=== PATIENT | male | born 1960 | race Caucasian/White ===

== ENCOUNTER 2024-05-30 10:56 | Inpatient (IN) ==
--- NOTE | 2024-05-30 11:54 | Emergency Department Note ---
Impression & Plan Myelopathy concurrent with and due to spinal stenosis of cervical region, Encounter for pre-operative examination ED Provider Note CHIEF COMPLAINT: "I am here as a direct admit for surgery tomorrow" HISTORY OF PRESENT ILLNESS: This 63-year-old male patient presents to the emergency department via private vehicle at the recommendation of Dr. Mckee. The patient states he was referred to the emergency department for admission for scheduled cervical spine surgery tomorrow morning. He states that he was unable to get in with his primary care provider for medical clearance prior to the surgery date and was referred to the emergency department to be admitted and medically cleared by the hospitalist staff prior to his surgery. He states "the surgery is emergent". He states he has been having difficulty ambulating and frequent falls despite the use of a walker. He notes he is having pain in his neck and all extremities with decreased range of motion of the bilateral upper extremities. Symptoms have been ongoing for about 6 weeks. No new injury or symptoms today. Pt. uncertain whether he is being admitted by Dr. Mckee or by hospitalist service. Pt. states he had Pre-admission testing completed here at the hospital about 1-2 weeks ago. History provided by: Patient and REVIEW OF SYSTEMS: A 10 system review of systems was performed with positives and pertinent negatives listed in the history of present illness. All other systems were reviewed and are negative. ALLERGIES: NKDA PHYSICAL EXAM: VITALS: Vitals are noted on the nurse's note and reviewed by myself. GENERAL: This is a 63 year old male, in no acute distress, nondiaphoretic, well- developed well-nourished. SKIN: The skin was without rashes, erythema, edema, or bruising. There is no tenting of the skin. Capillary refill less than 2 seconds. HEAD: Normocephalic atraumatic. EYES: Conjunctivae without injection, sclerae without icterus. MOUTH: Mucous membranes moist. NECK: Supple without nuchal rigidity. No lymphadenopathy. Cervical spine is nontender. No JVD. HEART: Regular rate and rhythm without murmurs gallops or rubs. LUNGS: Clear to auscultation bilaterally without wheezes, rales or rhonchi. No retractions or accessory muscle use. ABDOMEN: Positive bowel sounds x 4. Soft, nontender, without masses or organomegaly. No guarding or rebound tenderness. MUSCULOSKELETAL: No muscle atrophy, erythema, or edema noted. Full range of motion without joint tenderness in all extremities. NEURO: Patient was alert and oriented to person place and time. No focal neurological deficits. EMERGENCY DEPARTMENT COURSE: The patient was seen and evaluated as above. I did consult with Dr. Mckee. He is familiar with this patient. He notes that he will perform the admission. IV access was obtained and basic labs were drawn. No concerning leukocytosis or anemia. No thrombocytopenia. Renal, hepatic function and electrolytes without significant abnormality. Blood glucose is elevated at 308. Urinalysis positive for 3+ glucose, but no clear evidence of infection. I discussed the case with the pharmacy manager. Please see inpatient team dictation regarding ongoing management care of this patient. Case was discussed with the attending physician. This visit is during a period of high volume and high acuity in the emergency department. I attest that I have personally reviewed the patient medication list. I attest that I have reviewed the patient's blood pressure and it was found to be elevated. Further management by inpatient team. GCS: 15 In the evaluation and treatment of this patient the following differential diagnoses were entertained: cervical radiculopathy, pre-operative evaluation, hypertension, hyperglycemia, malignancy, among others The chart was completed utilizing [employer] Speech voice recognition software. Grammatical errors, random word insertions, pronoun errors, and incomplete sentences are an occasional consequence of this system due to software limitations, ambient noise, and hardware issues. Any formal questions or concerns about the content, text, or information contained within the body of this dictation should be directly addressed to the provider for clarification. Past Med/Surg History Problem List (Updated 05/30/24 @ 16:17 by Lou Phan PA-C) Myelopathy concurrent with and due to spinal stenosis of cervical region (Acute) Encounter for pre-operative examination (Acute) Medical History History of kidney stones passed on own Type 2 diabetes mellitus IDDM History of prostate cancer 2011 - XRT only - no chemo/surgery Hx of gastric ulcer "About a year ago. It was three bleeding ulcers" resolved and no issues at this time Hypertension Surgical History Hx of colonoscopy Hx of fusion of cervical spine 2017 - hardware in place - Full ROM as per patient S/P insertion of spinal cord stimulator (2022) Social History Smoking Status: Never smoker Second Hand Exposure: No; Do You Dip or Chew Tobacco: No; Hx Alcohol Use: No Hx Substance Use: No Preferred Language: Lebanese Communication Ability: Effective Vice President Sales And Marketing Required: No Beliefs That Will Affect Care: None Current Living Situation: Spouse Feels Safe at Home: Yes Assistive Devices: Walker Allergies Allergies Allergy/AdvReac Type Severity Reaction Status Date / Time No Known Allergies Allergy Verified 05/30/24 12:18 Home Meds Home Medications Medication Instructions Recorded Confirmed atorvastatin 20 mg tablet (Lipitor) 20 mg PO QPM 05/26/24 05/30/24 duloxetine 20 mg capsule,delayed 20 mg PO BID 05/26/24 05/30/24 release (Cymbalta) insulin glargine 100 unit/mL (3 60 unit subcut QPM 05/26/24 05/30/24 mL) subcutaneous pen (Lantus Solostar U-100 Insulin) insulin lispro 100 unit/mL 1 sliding scale dose subcut UD PRN 05/26/24 05/30/24 subcutaneous pen BS levels irbesartan 300 mg tablet (Avapro) 300 mg PO QAM 05/26/24 05/30/24 pantoprazole 20 mg tablet,delayed 20 mg PO QAM 05/26/24 05/30/24 release (Protonix) pregabalin 300 mg capsule 300 mg PO BID 05/26/24 05/30/24 tirzepatide 15 mg/0.5 mL 15 mg subcut WK 05/26/24 05/30/24 subcutaneous pen injector (Mounjaro) cholecalciferol (vitamin D3) 125 5,000 unit PO QAM 05/30/24 05/30/24 mcg (5,000 unit) tablet cyanocobalamin (vitamin B-12) 1,000 mcg PO QAM 05/30/24 05/30/24 1,000 mcg tablet multivitamin 1 tab PO QAM 05/30/24 05/30/24 Results & Data (ED) Vital Signs Vital Signs - 24 hr 05/30/24 10:59 Temperature 35.7 C L Temperature Source Temporal Artery Scan Pulse Rate 72 Respiratory Rate 20 Respiratory Effort / Characteristics Non-Labored Spontaneous Respiratory Depth Normal Blood Pressure 112/72 Blood Pressure Mean 85 Pulse Oximetry 97 Oxygen Delivery Method Room Air Sepsis Recent Fever Within 48 Hours No Sepsis New/Unexplained Change in Mental Status No Sepsis Action Taken by Nursing No Action Required Laboratory Data 05/30/24 15:47 05/30/24 12:13 Discharge Plan Visit Data Chief Complaint: Neck Injury/Pain Stated Complaint: NEEDS ADMITED FOR EMERGENCY NECK SURG TOMORROW ED Provider: Mana Wasserman ED Midlevel Provider: Lou Phan Discharge Problem: Myelopathy concurrent with and due to spinal stenosis of cervical region, Encounter for pre-operative examination Patient Disposition: Admitted As Inpatient Discharge Instructions Interventions: ED Discharge Assessment Last Done: 05/30/24 15:28
[2024-05-30 12:37] LABS: Basophils # (auto) 0.03 K/uL (0.00-0.20); Basophils % (auto) 0.3 %; Eosinophils # (auto) 0.22 K/uL (0.00-0.50); Eosinophils % (auto) 2.5 %; Hematocrit (blood only) 43.3 % (42.0-52.0); Hemoglobin 15.5 g/dl (14.0-18.0); Immature Granulocytes # (auto) 0.05 K/uL (0.01-0.20); Immature Granulocytes % (auto) 0.6 %; Lymphocytes # (auto) 2.05 K/uL (1.20-3.40); Lymphocytes % (auto) 23.3 %; Mean Corpuscular Hemoglobin 32.9 pg (25.0-34.0); Mean Corpuscular Hgb Conc 35.8 g/dL (32.0-36.0); Mean Corpuscular Volume 91.9 fL (80.0-100.0); Mean Platelet Volume 10.9 fL (9.4-12.4); Monocytes # (auto) 0.71 K/uL (0.11-0.59); Monocytes % (auto) 8.1 %; Neutrophils # (auto) 5.75 K/uL (1.40-6.50); Neutrophils % (auto) 65.2 %; Platelet Count 289 K/uL (130-400); RDW Coefficient of Variation 12.4 % (11.5-14.5); RDW Standard Deviation 42.1 fL (36.4-46.3); Red Blood Count 4.71 M/uL (4.70-6.10); White Blood Count 8.81 K/ul (4.8-10.8)
[2024-05-30 13:01] LABS: Albumin Globulin Ratio 1.4 (0.9-2); Albumin Level 4.2 gm/dl (3.4-5.0); BUN Creatinine Ratio 23.8 (10-20); Bilirubin,Total 0.4 mg/dl (0.2-1.0); Calcium 9.5 mg/dl (8.6-10.3); Creatinine Clr Calc Pharmacy 87.1 ml/min; Globulin 2.9 gm/dl (2.5-4.0); Potassium 4.4 mmol/L (3.5-5.1); Total Protein 7.1 gm/dl (6.0-8.3)
[2024-05-30 13:22] LABS: Appearance Urine Clear (Clear); Bilirubin Urine Negative (Negative); Blood Urine Negative (Negative); Color Urine Yellow; Glucose Urine UA 3+ (Negative); Ketones Urine Negative (Negative); Leukocyte Esterase Urine Negative (Negative); Nitrite Urine Negative (Negative); Protein Urine Negative (Negative); Specific Gravity Urine 1.027 (1.000-1.030); Urobilinogen Urine Negative (Negative); pH Urine 5.5 (4.5-7.5)
--- NOTE | 2024-05-30 14:39 | History & Physical Report ---
Date of Service May 30, 2024 Assessment & Plan (1) Myelopathy concurrent with and due to spinal stenosis of cervical region: Plan: Assessment cervical spinal stenosis with herniated supposes creating myelopathy. Plan at this time admit the patient for medical evaluation and plan for anterior cervical corpectomy of C6 in the a.m. Will make him n.p.o. after midnight. Risk benefits pros cons alternatives all in detail. Understands the primary goal of the procedure is to halt progressive neurologic deficits and then time hopefully he will gain improvement. History of Present Illness Chief Complaint: Bilateral arm and leg weakness Primary Care Provider: Estelle Okeefe DO This is a 63-year-old male who presents with marked decline over the past several months with his ability to ambulate. He notes marked decline in strength in his upper and lower extremities. He is marked difficulty with fine motor skills involving his hands. Imaging of the cervical spine demonstrates massive disc herniation posterior to the body of C6 with severe cord compression and myelomalacia. He is here for medical evaluation and urgent surgical intervention. Allergies Allergy/AdvReac Type Severity Reaction Status Date / Time No Known Allergies Allergy Verified 05/30/24 12:18 Home Medications Medication Instructions Recorded Confirmed Type atorvastatin 20 mg tablet (Lipitor) 20 mg PO QPM 05/26/24 05/30/24 History duloxetine 20 mg capsule,delayed 20 mg PO BID 05/26/24 05/30/24 History release (Cymbalta) insulin glargine 100 unit/mL (3 60 unit subcut QPM 05/26/24 05/30/24 History mL) subcutaneous pen (Lantus Solostar U-100 Insulin) insulin lispro 100 unit/mL 1 sliding scale dose subcut UD PRN 05/26/24 05/30/24 History subcutaneous pen BS levels irbesartan 300 mg tablet (Avapro) 300 mg PO QAM 05/26/24 05/30/24 History pantoprazole 20 mg tablet,delayed 20 mg PO QAM 05/26/24 05/30/24 History release (Protonix) pregabalin 300 mg capsule 300 mg PO BID 05/26/24 05/30/24 History tirzepatide 15 mg/0.5 mL 15 mg subcut WK 05/26/24 05/30/24 History subcutaneous pen injector (Mounhectorro) cholecalciferol (vitamin D3) 125 5,000 unit PO QAM 05/30/24 05/30/24 History mcg (5,000 unit) tablet cyanocobalamin (vitamin B-12) 1,000 mcg PO QAM 05/30/24 05/30/24 History 1,000 mcg tablet multivitamin 1 tab PO QAM 05/30/24 05/30/24 History Past Med/Surg History Problem List (Updated 05/30/24 @ 14:38 by Km Mckee DO) Myelopathy concurrent with and due to spinal stenosis of cervical region Encounter for pre-operative examination Medical History History of kidney stones passed on own History of prostate cancer 2011 - XRT only - no chemo/surgery Hx of gastric ulcer "About a year ago. It was three bleeding ulcers" resolved and no issues at this time Hypertension Type 2 diabetes mellitus IDDM Surgical History Hx of colonoscopy Hx of fusion of cervical spine 2016 - hardware in place - Full ROM as per patient S/P insertion of spinal cord stimulator (2022) Social History Smoking Status: Never smoker Second Hand Exposure: No; Do You Dip or Chew Tobacco: No; Hx Alcohol Use: No Hx Substance Use: No Preferred Language: Senegalese Communication Ability: Effective Chief Client Officer Required: No Beliefs That Will Affect Care: None Current Living Situation: Spouse Feels Safe at Home: Yes Assistive Devices: Walker Physical Exam Physical Exam: On exam the patient does demonstrate 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 He is marked weakness to finger intrinsics finger extensors flexors triceps bilaterally at a 3+/5. Sensory is diminished to the upper and lower extremities. Deep tendon reflexes are brisk globally. His Michael sign bilaterally. He cannot ambulate without the use of a walker for stability. He has a positive Romberg sign. Results & Data Results & Data Vital Signs (Past 12 Hours) Vital Signs Temp Pulse Pulse Resp BP BP Pulse Ox 05/30/24 12:16 69 18 117/76 96 05/30/24 10:59 35.7 C L 72 20 112/72 97 O2 Del Method 05/30/24 12:16 Room Air 05/30/24 10:59 Room Air Code Status & VTE Plan VTE Prophylaxis Plan VTE Prophylaxis will be ordered: Yes
[2024-05-30] MEDS ORDERED: HYDROmorphone INJ 0.5 MG/0.5 ML SYR IV PRN (15:28)
[2024-05-30] MEDS ORDERED: ONDANSETRON 4 MG OD TAB PO PRN (15:28)
[2024-05-30] MEDS ORDERED: LORazepam 0.5 MG TAB PO PRN (15:28)
[2024-05-30] MEDS ORDERED: LORazepam 2 MG/1 ML VIAL IV PRN (15:28)
[2024-05-30] MEDS ORDERED: ONDANSETRON INJ 2 MG/ML 2 ML VIAL IV PRN (15:28)
[2024-05-30] MEDS ORDERED: ACETAMINOPHEN 500 MG TAB PO PRN (15:28)
[2024-05-30] MEDS ORDERED: PROMETHAZINE 12.5 MG/50.5 ML BAG IV PRN (15:28)
[2024-05-30] MEDS ORDERED: METOCLOPRAMIDE HCL INJ 5 MG/ML 2 ML VIAL IV PRN (15:28)
[2024-05-30] MEDS ORDERED: PHARMACY GLYCEMIC MGMT CONSULT PRN (15:28)
[2024-05-30] MEDS ORDERED: NON-FORMULARY MEDICATION (Insulin Lispro 100 unit/mL Insulin Pen) SQ SCH (15:28)
[2024-05-30] MEDS ORDERED: NALOXONE HCL 0.4 MG/1 ML VIAL/CARP IV PRN (15:28)
[2024-05-30] MEDS ORDERED: ACETAMINOPHEN 1,000 MG/100 ML VIAL IV PRN (15:28)
--- NOTE | 2024-05-30 15:40 | Emergency Department Note ---
ED Visit Note I was consulted by the Advanced Practice Provider. I personally approved the management plan and take responsibility for the patient management. This includes the aspects of: -History/Physical -MDM -I independently interpreted the following studies:Studies and results .
[2024-05-30] MEDS ORDERED: GLUCOSE 10 TAB/TUBE PO PRN (16:00)
[2024-05-30] MEDS ORDERED: DEXTROSE 50% 50 ML SYRINGE IV PRN (16:00)
[2024-05-30] MEDS ORDERED: CARBOHYDRATES FOR HYPOGLYCEMIA PO PRN (16:00)
[2024-05-30] MEDS ORDERED: GLUCOSE 40% GEL 15 GM TUBE PO PRN (16:00)
[2024-05-30] MEDS ORDERED: GLUCAGON FOR INJ 1 MG VIAL SQ PRN (16:00)
[2024-05-30 16:03] LABS: Basophils # (auto) 0.04 K/uL (0.00-0.20); Basophils % (auto) 0.5 %; Eosinophils # (auto) 0.22 K/uL (0.00-0.50); Eosinophils % (auto) 2.9 %; Hematocrit (blood only) 43.5 % (42.0-52.0); Immature Granulocytes # (auto) 0.04 K/uL (0.01-0.20); Immature Granulocytes % (auto) 0.5 %; Lymphocytes # (auto) 1.87 K/uL (1.20-3.40); Lymphocytes % (auto) 24.6 %; Mean Corpuscular Hemoglobin 32.1 pg (25.0-34.0); Mean Corpuscular Hgb Conc 34.5 g/dL (32.0-36.0); Mean Corpuscular Volume 92.9 fL (80.0-100.0); Mean Platelet Volume 10.8 fL (9.4-12.4); Monocytes # (auto) 0.68 K/uL (0.11-0.59); Neutrophils # (auto) 4.74 K/uL (1.40-6.50); Neutrophils % (auto) 62.5 %; Platelet Count 290 K/uL (130-400); RDW Coefficient of Variation 12.6 % (11.5-14.5); RDW Standard Deviation 43.5 fL (36.4-46.3); Red Blood Count 4.68 M/uL (4.70-6.10); White Blood Count 7.59 K/ul (4.8-10.8)
[2024-05-30 16:30] LABS: Albumin Globulin Ratio 1.2 (0.9-2); Albumin Level 3.8 gm/dl (3.4-5.0); Bilirubin,Total 0.4 mg/dl (0.2-1.0); Calcium 9.2 mg/dl (8.6-10.3); Globulin 3.1 gm/dl (2.5-4.0); Potassium 4.7 mmol/L (3.5-5.1); Total Protein 6.9 gm/dl (6.0-8.3)
--- NOTE | 2024-05-30 17:03 | XRay Report ---
EXAM: Radiographs of the Chest 2 Views INDICATION: Undergoing preoperative evaluation TECHNIQUE: Frontal and lateral views of the chest. COMPARISON: 05/25/2024 FINDINGS: Lungs and pleural spaces: No consolidation or pulmonary edema. No pleural effusion or pneumothorax. Heart: Normal shape and configuration. Mediastinum: Normal contour. Bones/joints: Degenerative changes noted throughout the spine. No acute osseous abnormality seen. Tubes, lines and devices: Stable dorsal column electrode. IMPRESSION: No acute cardiopulmonary disease. ACT 112: Negative or not required by law. Electronically signed by Tere Parkinson 05-30-2024 5:03 PM
[2024-05-30] MEDS: INSULIN ASPART PER UNIT CHARGE SC SCH ×2 (17:21→23:35)
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
[2024-05-30] MEDS ORDERED: POLYETHYLENE (MIRALAX) 17 GM PACK PO PRN (19:30)
[2024-05-30] MEDS: LANTUS PER UNIT CHARGE SC SCH (20:53)
[2024-05-30] MEDS: PREGABALIN 150 MG CAP PO SCH (20:58)
[2024-05-30] MEDS: ATORVASTATIN 20 MG TAB PO SCH (20:59)
[2024-05-30] MEDS: DULoxetine HCL 20 MG CAP PO SCH (20:59)
[2024-05-30] MEDS ORDERED: NON-FORMULARY MEDICATION (Insulin Glargine [Lantus Solostar U-100 Insulin] 100 unit/mL (3 SQ SCH (21:00)
[2024-05-31 07:13] LABS: Hematocrit (blood only) 41.8 % (42.0-52.0); Hemoglobin 14.4 g/dl (14.0-18.0); Mean Corpuscular Hemoglobin 31.6 pg (25.0-34.0); Mean Corpuscular Hgb Conc 34.4 g/dL (32.0-36.0); Mean Corpuscular Volume 91.9 fL (80.0-100.0); Mean Platelet Volume 10.7 fL (9.4-12.4); Platelet Count 299 K/uL (130-400); RDW Coefficient of Variation 12.9 % (11.5-14.5); RDW Standard Deviation 43.4 fL (36.4-46.3); Red Blood Count 4.55 M/uL (4.70-6.10); White Blood Count 9.39 K/ul (4.8-10.8)
[2024-05-31 07:19] LABS: BUN Creatinine Ratio 23.3 (10-20); Calcium 9.3 mg/dl (8.6-10.3); Creatinine Clr Calc Pharmacy 85.5 ml/min; Magnesium 1.6 mg/dl (1.7-2.4); Potassium 4.2 mmol/L (3.5-5.1)
--- NOTE | 2024-05-31 07:47 | History & Physical Bridge Note ---
Date of Service May 31, 2024 History & Physical Bridge Note I have examined the patient, reviewed the History & Physical and in the interval since the performance of the History & Physical I have noted the following changes of clinical significance: no changes noted C6 corpectomy
[2024-05-31] MEDS: ceFAZolin 2000MG 2,000 MG/15 ML SYR IV SCH ×2 (08:20→17:05)
[2024-05-31 08:29] LABS: Estimated Average Glucose 229 mg/dl; Hemoglobin A1C 9.6 % (4.5-5.6)
[2024-05-31] MEDS: ceFAZolin 330 MG/ML 1 GM VIAL ONE (09:40)
--- NOTE | 2024-05-31 09:47 | Operative Report ---
Post Operative Report Pre & Post Diagnosis Operation Date: 05/31/24 07:45 Pre-Op Diagnosis: Myelopathy concurrent with and due to spinal stenosis of cervical region Post-Op Diagnosis: Myelopathy concurrent with and due to spinal stenosis of cervical region I identified the patient and participated in the time-out.: Yes Procedure Operation Date: 05/31/24 07:45 Actual Procedures #1 anterior cervical partial discectomy of C6. #2 anterior cervical arthrodesis C6-C7. #3 placement 19 mm Spira cage. #4 placement locally harvested morselized autograft combined with os designed in the interbody cage. #5 application of Z plate and screws from C5-C7. Surgeon Km Mckee, DO Student Accounts Coordinator Darwin Patel Estimated Blood Loss 10 Findings Consistent with Post-Op Diagnosis Specimens None Indications This is a 63-year-old male who presents with a massive disc herniation posterior to the body of C6 creating significant cervical spinal stenosis and myelopathy with evidence of myelomalacia on MRI scan. He is here for urgent decompression and fusion. Description of Procedure Patient was met with identified informed consent obtained. Patient was then taken to the operative suite underwent sedation supplies in the supine position on the Honorio table head Jerry heading up machine operator. All bony promises well-padded eyes inspected to ensure no external pressure placed upon the. This point the anterior cervical spine was prepped and draped no sterile fashion. With the assistance of fluoroscopy notified the C6 vertebral body. A longitudinal incision was placed along the right anterior aspect of the cervical spine overlying the C6 vertebral body. Blunt dissection with the assistance of bipolar electrocautery is then performed down to and exposing the anterior cervical spine from C5-C6. Several rosen retractors placed. Informed complete discectomy of C6 out to the uncovertebral joints bilaterally. Then performed a partial corpectomy of C6 roughly 2/3 of the vertebral body. I was able to leave the stand-alone intradiscal construct at C5-C6 in place. Appear to be solidly fused. Removed all posterior annular fibers and longitudinal limit for complete decompression of the canal. Massive fragment of disc material identified and removed. The endplates were then burred to subcortical bleeding bone and a 19 mm Spira cage filled with local harvested morselized autograft and os design tapped in position. Distracting apparatus was removed. Z plate was applied from C5-C7 with the assistance of fluoroscopy. The incision was then livia irrigated explored to ensure no damage to surrounding structures or remaining bleeding. 10 round MIGUELANGEL drain inserted. Incision then closed with 2 Vicryl fascia and 4 Monocryl for final skin closure. Steri-Strips sterile dressing placed. Patient waken taken the PACU stable condition. Please note spinal cord monitoring was utilized out the procedure no changes noted. Darwin Patel was present out the entire surgery and while the patient positioning complex portion of the surgery and final skin closure. Im ordering 10 grams of Triple Junior Collagen Powder ([employer] [id number]) to treat an incision wound that was caused by a spine procedure. The incision is approximately 2 cm(W) x 4 cm(L) into the joint (D) in size and is a full thickness wound. Triple Junior collagen comes in 1 gram packets so 10 packets were ordered. Given the size of the wound, with light to moderate exudate I chose to order a 10 day supply. The patient will be provided instructions for proper application of the collagen wound kit. The patient will be asked to apply the collagen powder daily and then cover it with sterile dressings dispensed. Collagen was selected as I expect the collagen to attract monocytes and fibroblasts, act as a sacrificial substrate for MMPs, and ultimately proved a matrix for tissue and vessel growth. The collagen will act as a primary dressing in this scenario. It is medically necessary for proper healing of these wounds to improve bioavailability and contact with each wound surface, this is also to help prevent infection of wounds and promote healing ultimately leading to a better healing outcome and limit the risk of infection. I attest to the content of the Intraoperative Record and any orders documented therein. Any exceptions are noted below.
[2024-05-31] MEDS: FLOSEAL HEMOSTATIC MATRIX 10ML TOP ONE (09:52)
--- NOTE | 2024-05-31 11:38 | Hospitalist Progress Note ---
Date of Service May 31, 2024 Assessment & Plan (1) Myelopathy concurrent with and due to spinal stenosis of cervical region: Plan Assessment and plan: Cervical spinal stenosis with myelopathy S/p C6 corpectomy 05/31 -Pain control, DVT prophylaxis as per primary team I-S and bowel regimen Recurrent falls Peripheral neuropathy Continue Lyrica, PT/OT/fall precautions DM Type II: A1c 9.6, glycemic pharmacist following Blood sugars improved today, continue insulin Hx HTN/HLD: Continue losartan/statin Hx prostate CA: Completed radiation treatment Hx GERD/PUD: Continue Protonix DVT Px: Disposition As per primary team Full code We will follow with you through hospitalization A total of 45 minutes was spent on chart review/reviewing diagnostic data/discussion with consultants/facilitating plan of care Admission and Anticipated Discharge Date Admission Date: May 30, 2024 Supervising Physician Co-Signing Physician Notes Pt seen and examined by me, care coordinated with NGUYEN Hutchison, pls refer to her note above for further detail. Pt seen after surgery, with pt's present at the bedside. Pt with cervical collar on, on 2L of suppl. O2. Pt denies any shortness of breath, or chest pain, no abd. pain or nausea. Has some RLE numbness - per RN Dr. Mckee aware. Pt reports some sorethroat. Lungs CTAB, heart sounds regular, abdomen soft, nontender. Continue to closely monitor, wean off O2, check CBC am. MD Katie Subjective Patient seen and examined. No apparent distress. Reports some right leg numbness after surgery, denies any chest pain or shortness of breath. Review of Systems Review of Systems: All systems reviewed & are unremarkable except as noted in HPI & below Physical Exam Physical Exam: General Appearance:Moderately built and nourished, no apparent distress Head: normocephalic, Atraumatic Eyes: normal inspection, EOMI Neck: supple, Trachea midline,+ mild flexion Respiratory/Chest: Normal breath sounds, CTA, No accessory muscle use Cardiovascular: S1, S2, No murmur Abdomen/GI:Soft, Non tender, Bowel sounds present Extremities/Musculoskeletal:normal inspection, no edema Back: Spinal stimulator Neurologic/Psych:AAOX3, decreased bilateral lower extremity sensation, decreased strength B/L LE 3-4/5 Right upper extremity diminished strength 4/5 Skin: normal color, warm MIGUELANGEL drain in place draining serosanguineous Results & Data Results & Data Vital Signs (Past 12 Hours) Vital Signs Temp Pulse Pulse Resp BP BP Pulse Ox 05/31/24 11:15 78 15 117/65 95 05/31/24 11:05 76 15 107/56 L 96 05/31/24 10:55 36.2 C L 75 12 121/59 L 96 05/31/24 10:45 75 13 123/65 98 05/31/24 10:35 77 12 146/71 H 98 05/31/24 10:25 74 12 123/63 98 05/31/24 10:15 69 12 128/64 98 05/31/24 10:06 36 C L 80 16 162/81 H 96 05/31/24 06:40 36.6 C 67 18 162/96 H 94 05/31/24 05:56 36.4 C L 73 16 114/54 L 95 O2 Del Method O2 Flow Rate 05/31/24 11:15 Nasal Cannula 2 05/31/24 11:05 Nasal Cannula 2 05/31/24 10:55 Oxymask 3 05/31/24 10:45 Oxymask 5 05/31/24 10:35 Oxymask 7 05/31/24 10:25 Oxymask 10 05/31/24 10:15 Oxymask 10 05/31/24 10:06 Oxymask 10 05/31/24 06:40 Room Air 05/31/24 05:56 Room Air Diagnostic Findings Laboratory Results WBC 9.39 K/ul (4.8-10.8) 05/31/24 06:48 RBC 4.55 M/uL (4.70-6.10) L 05/31/24 06:48 Hgb 14.4 g/dl (14.0-18.0) 05/31/24 06:48 Hct 41.8 % (42.0-52.0) L 05/31/24 06:48 MCV 91.9 fL (80.0-100.0) 05/31/24 06:48 MCH 31.6 pg (25.0-34.0) 05/31/24 06:48 MCHC 34.4 g/dL (32.0-36.0) 05/31/24 06:48 RDW Std Deviation 43.4 fL (36.4-46.3) 05/31/24 06:48 RDW Coeff of Mathew 12.9 % (11.5-14.5) 05/31/24 06:48 Plt Count 299 K/uL (130-400) 05/31/24 06:48 MPV 10.7 fL (9.4-12.4) 05/31/24 06:48 Immature Gran % (Auto) 0.5 % 05/30/24 15:47 Neut % (Auto) 62.5 % 05/30/24 15:47 Lymph % (Auto) 24.6 % 05/30/24 15:47 Dolores % (Auto) 9.0 % 05/30/24 15:47 Eos % (Auto) 2.9 % 05/30/24 15:47 Baso % (Auto) 0.5 % 05/30/24 15:47 Neut # (Auto) 4.74 K/uL (1.40-6.50) 05/30/24 15:47 Lymph # (Auto) 1.87 K/uL (1.20-3.40) 05/30/24 15:47 Dolores # (Auto) 0.68 K/uL (0.11-0.59) H 05/30/24 15:47 Eos # (Auto) 0.22 K/uL (0.00-0.50) 05/30/24 15:47 Baso # (Auto) 0.04 K/uL (0.00-0.20) 05/30/24 15:47 Immature Gran # (Auto) 0.04 K/uL (0.01-0.20) 05/30/24 15:47 Sodium 138 mmol/L (136-145) 05/31/24 06:48 Potassium 4.2 mmol/L (3.5-5.1) 05/31/24 06:48 Chloride 104 mmol/L (98-107) 05/31/24 06:48 Carbon Dioxide 28 mmol/L (21-32) 05/31/24 06:48 Anion Gap 6 (3-11) 05/31/24 06:48 BUN 24 mg/dl (6-23) H 05/31/24 06:48 Creatinine 1.03 mg/dl (0.6-1.4) 05/31/24 06:48 Est Cr Clr Drug Dosing 85.5 ml/min 05/31/24 06:48 eGFR 80.61 05/31/24 06:48 BUN/Creatinine Ratio 23.3 (10-20) H 05/31/24 06:48 Glucose 101 mg/dl (70-99(Fasting)) H 05/31/24 06:48 POC Glucose 163 mg/dl (70-99) H 05/31/24 10:09 Estimat Average Glucose 229 mg/dl 05/31/24 06:48 Hemoglobin A1c 9.6 % (4.5-5.6) H 05/31/24 06:48 Calcium 9.3 mg/dl (8.6-10.3) 05/31/24 06:48 Magnesium 1.6 mg/dl (1.7-2.4) L 05/31/24 06:48 Total Bilirubin 0.4 mg/dl (0.2-1.0) 05/30/24 15:47 AST 19 U/L (13-39) 05/30/24 15:47 ALT 28 U/L (7-52) 05/30/24 15:47 Alkaline Phosphatase 110 U/L (34-104) H 05/30/24 15:47 Total Protein 6.9 gm/dl (6.0-8.3) 05/30/24 15:47 Albumin 3.8 gm/dl (3.4-5.0) 05/30/24 15:47 Globulin 3.1 gm/dl (2.5-4.0) 05/30/24 15:47 Albumin/Globulin Ratio 1.2 (0.9-2) 05/30/24 15:47 Urine Color Yellow 05/30/24 13:03 Urine Appearance Clear (Clear) 05/30/24 13:03 Urine pH 5.5 (4.5-7.5) 05/30/24 13:03 Ur Specific [place] 1.027 (1.000-1.030) 05/30/24 13:03 Urine Protein Negative (Negative) 05/30/24 13:03 Urine Glucose (UA) 3+ (Negative) H 05/30/24 13:03 Urine Ketones Negative (Negative) 05/30/24 13:03 Urine Blood Negative (Negative) 05/30/24 13:03 Urine Nitrite Negative (Negative) 05/30/24 13:03 Urine Bilirubin Negative (Negative) 05/30/24 13:03 Urine Urobilinogen Negative (Negative) 05/30/24 13:03 Ur Leukocyte Esterase Negative (Negative) 05/30/24 13:03 Impressions Chest X-Ray 05/30/24 15:28 EXAM: Radiographs of the Chest 2 Views INDICATION: Undergoing preoperative evaluation TECHNIQUE: Frontal and lateral views of the chest. COMPARISON: 05/25/2024 FINDINGS: Lungs and pleural spaces: No consolidation or pulmonary edema. No pleural effusion or pneumothorax. Heart: Normal shape and configuration. Mediastinum: Normal contour. Bones/joints: Degenerative changes noted throughout the spine. No acute osseous abnormality seen. Tubes, lines and devices: Stable dorsal column electrode. IMPRESSION: No acute cardiopulmonary disease. ACT 112: Negative or not required by law. Electronically signed by Tere Parkinson 05-30-2024 5:03 PM
[2024-05-31] MEDS ORDERED: ONDANSETRON INJ 2 MG/ML 2 ML VIAL IV PRN (12:05)
[2024-05-31] MEDS ORDERED: ACETAMINOPHEN 1,000 MG/100 ML VIAL IV PRN (12:05)
[2024-05-31] MEDS ORDERED: ONDANSETRON 4 MG OD TAB PO PRN (12:05)
[2024-05-31] MEDS ORDERED: MAGNESIUM HYDROXIDE SUSP 30 ML UDC PO PRN (12:05)
[2024-05-31] MEDS ORDERED: PROMETHAZINE 12.5 MG/50.5 ML BAG IV PRN (12:05)
[2024-05-31] MEDS ORDERED: bisacodyL 10 MG SUPP PR PRN (12:05)
[2024-05-31] MEDS ORDERED: hydrOXYzine HCl 25 MG TAB PO PRN (12:05)
[2024-05-31] MEDS ORDERED: LORazepam 2 MG/1 ML VIAL IV PRN (12:05)
[2024-05-31] MEDS ORDERED: FAMOTIDINE 20 MG TAB PO PRN (12:05)
[2024-05-31] MEDS ORDERED: METOCLOPRAMIDE HCL INJ 5 MG/ML 2 ML VIAL IV PRN (12:05)
[2024-05-31] MEDS ORDERED: DO NOT ADMINISTER PNEUMOCOCCAL VACCINE PRN (12:05)
[2024-05-31] MEDS ORDERED: diphenhydrAMINE Capsule 25 MG CAP PO PRN (12:05)
[2024-05-31] MEDS ORDERED: DO NOT ADMINISTER FLU VACCINE PRN (12:05)
[2024-05-31] MEDS ORDERED: NALOXONE HCL 0.4 MG/1 ML VIAL/CARP IV PRN (12:05)
[2024-05-31] MEDS ORDERED: ALUMINUM/MAGNESIUM SUSP 30 ML UDC PO PRN (12:05)
[2024-05-31] MEDS ORDERED: dexAMETHasone 8 MG in SYRINGE 0 ML IV PRN (12:05)
[2024-05-31] MEDS ORDERED: RACEPINEPHRINE 2.25% NEBU SOLN 0.5 ML VIAL INH PRN (12:05)
[2024-05-31] MEDS ORDERED: SOD PHOSPHATE/SOD BIPHOSPHATE ENEMA 132 ML BTL PR PRN (12:05)
[2024-05-31] MEDS: PANTOprazole 40 MG TAB PO SCH (12:29)
[2024-05-31] MEDS: LOSARTAN POTASSIUM 50 MG TAB PO SCH (12:29)
[2024-05-31] MEDS: CYANOCOBALAMIN (B-12) 500 MCG TABLET PO SCH (12:29)
[2024-05-31] MEDS: CHOLECALCIFEROL 125 MCG (5,000 UNITS) TAB PO SCH (12:29)
[2024-05-31] MEDS: HYDROmorphone INJ 1 MG/ML SYRINGE IV PRN (12:29)
[2024-05-31] MEDS: MAGNESIUM SULFATE / D5W 1 GM/100 ML BAG IV ONE (12:30)
[2024-05-31] MEDS ORDERED: Nursing to Pharmacy Communication SCH (13:00)
[2024-05-31] MEDS: INSULIN ASPART PER UNIT CHARGE SC SCH (13:22)
[2024-05-31] MEDS: LANTUS PER UNIT CHARGE SC STA (13:22)
[2024-05-31] MEDS: dexAMETHasone 8 MG in SYRINGE 0 ML IV SCH (13:34)
--- NOTE | 2024-05-31 13:57 | Pharmacy Report ---
Pharmacy Glycemic Short Note 2 - Date of Service May 31, 2024 - Glycemic Short BSG Results (Last 24 hours): 05/30/24 05/30/24 05/30/24 15:47 16:58 20:15 Glucose 363 H* POC Glucose 299 H 243 H 05/30/24 05/31/24 05/31/24 23:26 00:09 05:53 Glucose POC Glucose 165 H 125 H 96 05/31/24 05/31/24 05/31/24 06:48 10:09 12:11 Glucose 101 H POC Glucose 163 H 203 H OUTPATIENT ANTIDIABETIC REGIMEN: * Lantus 60 units SC HS * Humalog SSI prn * Tirzepatide 15 mg SC every Wednesday HbA1c: * 9.6% (05/31/24) ASSESSMENT: * 63 yo M admitted on 05/30/24 secondary to back pain and direct admit for surgery. Pharmacy has been consulted to assist with inpatient glycemic management. Patient is a Type 2 diabetic as an outpatient. Please refer to outpatient regimen and most recent HbA1c above. * Patient is POD #0 from a spinal surgery with Dr. Mckee. No steroids were given intraoperatively. However, patient is scheduled to receive 8 mg of IV Dexamethasone every 8 hours x 3 doses starting now. Ordered a T2DM diet and tolerating postop. * Received 50 mg of Lantus last night and required 27 units of correctional/prandial insulin overnight. BSGs were: 299-243-165 mg/dL. * Fasting BSG was below goal at 96 mg/dL this AM, likely due to NPO status for surgery. Postop BSG was 163 mg/dL and recheck prior to lunch was 203 mg/dL. Will give 20 units of Lantus now x 1 to help cover steroids. Targeting total daily basal dose of 70 units which is stress from home. Continue with previous HS basal dose. * Tightened Novolog parameters this AM and when lunchtime BSG was greater than 200 mg/dL, tightened carb ratio even further. PLAN FOR INPATIENT GLYCEMIC CONTROL: * Basal insulin * Lantus 50 units SC HS * Lantus 20 units SC x 1 now * Bolus insulin * NovoLog per scale ACHS or Q6hrs while NPO * Goal Range: Low 110 mg/dL - High 140 mg/dL * Correction Factor: 15 mg/dL/unit * Nutritional / Prandial insulin per carb ratio of 1 unit per 4 grams CHO consumed
[2024-05-31] MEDS: oxyCODONE HCL IR 5 MG TAB (IMMEDIATE RELEASE) PO PRN (17:12)
[2024-05-31] MEDS: LANTUS PER UNIT CHARGE SC ONE (17:32)
[2024-05-31] MEDS: DOCUSATE SODIUM/SENNA 50/8.6MG TAB PO SCH (20:53)
[2024-05-31] MEDS: traMADol HCL 50 MG TABLET PO PRN (23:03)
[2024-06-01] MEDS: INSULIN ASPART PER UNIT CHARGE SC SCH
[2024-06-01] MEDS: POLYETHYLENE (MIRALAX) 17 GM PACK PO SCH (05:27)
[2024-06-01 06:32] LABS: Hematocrit (blood only) 41.6 % (42.0-52.0); Hemoglobin 14.3 g/dl (14.0-18.0); Mean Corpuscular Hemoglobin 31.9 pg (25.0-34.0); Mean Corpuscular Hgb Conc 34.4 g/dL (32.0-36.0); Mean Corpuscular Volume 92.9 fL (80.0-100.0); Platelet Count 291 K/uL (130-400); RDW Coefficient of Variation 12.6 % (11.5-14.5); RDW Standard Deviation 43.4 fL (36.4-46.3); Red Blood Count 4.48 M/uL (4.70-6.10); White Blood Count 18.69 K/ul (4.8-10.8)
[2024-06-01 07:01] LABS: Calcium 9.5 mg/dl (8.6-10.3); Magnesium 1.8 mg/dl (1.7-2.4); Phosphorus 3.7 mg/dl (2.5-4.9); Potassium 4.7 mmol/L (3.5-5.1)
--- NOTE | 2024-06-01 08:50 | Discharge Summary ---
Date of Service June 01, 2024 Admission HPI Per Admitting Provider This is a 63-year-old male who presents with marked decline over the past several months with his ability to ambulate. He notes marked decline in strength in his upper and lower extremities. He is marked difficulty with fine motor skills involving his hands. Imaging of the cervical spine demonstrates massive disc herniation posterior to the body of C6 with severe cord compression and myelomalacia. He is here for medical evaluation and urgent surgical intervention. Admission Exam (Per Admitting) Constitutional WD/WN, vitals as above Eyes normal visual thompson by confrontation ENMT external ear and nose normal, oropharynx normal Neck normal visual inspection Respiratory normal respiratory effort Cardiovascular Extremities: normal capillary refill Gastrointestinal (Abdomen) Inspection/Auscultation: abdomen normal to inspection Musculoskeletal Spine: + limited cervical ROM Extremities: extremities normal to inspection and + abnormal strength Skin no rashes, warm and dry Neurologic normal touch/pain/proprioception and moves all extremities Psychiatric A+Ox3, euthymic affect Eye Contact: good eye contact Discharge Data Consultations 05/30/24 11:54 ED Decision to Admit Stat 05/30/24 15:28 Consult Anesthesiology Routine Consult Internal Medicine Routine Procedures Performed Operation Date: 05/31/24 07:45 Actual Procedures p C6 Corpectomy(Not Applicable) - Km Mckee DO Hospital Course (1) Myelopathy concurrent with and due to spinal stenosis of cervical region: Miguel Ángel is postoperative day 1 status post revision C6 corpectomy. He feels much better. Still weak and numb in the upper extremities but improving. No dysphagia or dysphonia. MIGUELANGEL drain output last shift was 10 cc Discharge Instructions ACTIVITY RECOMMENDATIONS: SELF CARE INSTRUCTIONS AFTER CERVICAL FUSIONS 1. No smoking. Smoking drastically decreases the chance of a solid fusion. 2. No bending, lifting more than 5 pounds, or twisting (roll like a log when turning in bed). 3. You may shower 3 days after surgery. Thoroughly dry wound. Do not soak in the tub. 4. Cervical collar: Must be worn at all times including sleeping. You may remove the brace only to bath, eat and if you are sitting in a recliner. 5. Please walk as much as you can for exercise. Gradually increase the distance that you walk as your endurance increases. 6. You may return to previous diet. SPECIAL CARE INSTRUCTIONS: VERY IMPORTANT TO READ AND REVIEW A. Do not take any anti-inflammatory medications (i.e. Indocin, Advil, Aspirin, Naprosyn, Aleve, Motrin, etc.) as these may inhibit the chance of a solid fusion. Tylenol is okay to take. B. Your surgical incision has been closed with a cosmetic suture under the skin that will dissolve in about 6 weeks. In 14 days, you can use a pair of clean scissors and cut the suture that is left outside of the skin at the ends of your incision. C. Complications are uncommon, but please contact us if you have any signs or symptoms of: 1. wound infection (fever higher than 102.5 degrees F, redness, separation of wound, drainage, or increasing pain from the incision) 2. blood clots in legs (pain, swelling, redness and warmth in legs) 3. urinary tract infection (fever higher than 102.5 degrees, burning upon urination or increased frequency of urination) 4. nerve problems (inability to walk on your toes or heels, numbness, loss of bowel or bladder control) 5. any other symptoms that concern you. D. Please call the office at if you have any concerns or questions about your operation or recovery. MANAGING PAIN AFTER SPINAL SURGERY 1. Narcotic medication is intended for short-term use and will be provided for surgical pain. Surgical pain usually lasts for a period of 4-6 weeks. Narcotic medication includes Percocet, Vicodin, Darvocet, Tylenol #3 or Lortab. 2. Longer-term pain is more appropriately treated with non-narcotic medication such as Tylenol ES. 3. Muscle spasm is not appropriately treated with narcotics. Muscle relaxers such as Soma, Flexeril or Skelaxin can be used along with Tylenol ES. 4. Remember that we all live with some "aches and pains". This is not unusual or uncommon after an injury or as we get older. 5. We will provide appropriate medication within the normal guidelines of their prescribed use. We will also be very cautious and aware of potential abuse and extended duration of patients' medication needs. 6. Please allow 2-3 days to process refills. Prescriptions will not be mailed but must be picked up at the office. FOLLOW UP VISIT: Keep your scheduled follow-up appointment. Any questions, please call the office at .
[2024-06-01] MEDS: LANTUS PER UNIT CHARGE SC SCH (09:05)
--- NOTE | 2024-06-01 09:08 | Hospitalist Progress Note ---
Date of Service June 01, 2024 Assessment & Plan (1) Myelopathy concurrent with and due to spinal stenosis of cervical region: Plan Assessment and plan: Cervical spinal stenosis with myelopathy S/p C6 corpectomy 05/31 -Pain control, DVT prophylaxis as per primary team I-S and bowel regimen Recurrent falls Peripheral neuropathy Continue Lyrica, PT/OT/fall precautions DM Type II: A1c 9.6, glycemic pharmacist following Blood sugars improved today, continue insulin Hx HTN/HLD: Continue losartan/statin Hx prostate CA: Completed radiation treatment Hx GERD/PUD: Continue Protonix DVT Px: Disposition As per primary team Full code Patient doing well today. Recommend PT/OT evaluation. Blood pressure elevated this a.m. If improves after losartan dose, no objections to discharge. Please continue home medications on discharge. A total of 30 minutes was spent on chart review/reviewing diagnostic data/discussion with consultants/facilitating plan of care Admission and Anticipated Discharge Date Admission Date: May 30, 2024 Supervising Physician Co-Signing Physician Notes Pt seen and examined by me, care coordinated with NGUYEN Hutchison, pls refer to her note above for further detail. Pt is currently sitting up in chair, in NAD, overall reports feeling much better. He is able to move his upper and lower extremities, says this is much improved from prior to surgery. No fever, chills, chest pain, shortness of breath, abd. pain, n/v. Pt with cervical collar on, on RA, saturating 96%. BP elevated this AM - prior to his BP meds given. Cont. to monitor BP. MD Katie Subjective Patient seen and examined. No apparent distress. Reports feeling much better this morning. Denies any shortness of breath or chest pain. Patient has been out of bed and is in the bathroom. Review of Systems Review of Systems: All systems reviewed & are unremarkable except as noted in HPI & below Physical Exam Physical Exam: General Appearance:Moderately built and nourished, no apparent distress Head: normocephalic, Atraumatic Eyes: normal inspection, EOMI Neck: supple, Trachea midline,+ mild flexion Respiratory/Chest: Normal breath sounds, CTA, No accessory muscle use Cardiovascular: S1, S2, No murmur Abdomen/GI:Soft, Non tender, Bowel sounds present Extremities/Musculoskeletal:normal inspection, no edema Back: Spinal stimulator Neurologic/Psych:AAOX3, decreased bilateral lower extremity sensation, decreased strength B/L LE 3-4/5 Right upper extremity diminished strength 4/5 Skin: normal color, warm MIGUELANGEL drain in place draining serosanguineous Results & Data Results & Data Vital Signs (Past 12 Hours) Vital Signs Temp Pulse Resp BP BP Pulse Ox O2 Del Method 06/01/24 07:43 36.6 C 80 16 171/82 H 96 Room Air 06/01/24 07:14 73 15 96 Room Air 06/01/24 05:04 36.8 C 88 16 148/73 H 94 Nasal Cannula 06/01/24 03:00 65 18 94 Nasal Cannula 06/01/24 02:57 36.7 C 88 16 143/79 H 94 Nasal Cannula 06/01/24 01:04 36.6 C 88 16 145/76 H 95 Nasal Cannula 05/31/24 23:45 90 18 95 Nasal Cannula 05/31/24 23:01 36.6 C 90 18 142/69 H 95 Nasal Cannula O2 Flow Rate 06/01/24 07:43 06/01/24 07:14 06/01/24 05:04 3 06/01/24 03:00 3 06/01/24 02:57 3 06/01/24 01:04 3 05/31/24 23:45 1 05/31/24 23:01 2 Diagnostic Findings Laboratory Results WBC 18.69 K/ul (4.8-10.8) H 06/01/24 06:10 RBC 4.48 M/uL (4.70-6.10) L 06/01/24 06:10 Hgb 14.3 g/dl (14.0-18.0) 06/01/24 06:10 Hct 41.6 % (42.0-52.0) L 06/01/24 06:10 MCV 92.9 fL (80.0-100.0) 06/01/24 06:10 MCH 31.9 pg (25.0-34.0) 06/01/24 06:10 MCHC 34.4 g/dL (32.0-36.0) 06/01/24 06:10 RDW Std Deviation 43.4 fL (36.4-46.3) 06/01/24 06:10 RDW Coeff of Mathew 12.6 % (11.5-14.5) 06/01/24 06:10 Plt Count 291 K/uL (130-400) 06/01/24 06:10 MPV 11.0 fL (9.4-12.4) 06/01/24 06:10 Immature Gran % (Auto) 0.5 % 05/30/24 15:47 Neut % (Auto) 62.5 % 05/30/24 15:47 Lymph % (Auto) 24.6 % 05/30/24 15:47 Cameron % (Auto) 9.0 % 05/30/24 15:47 Eos % (Auto) 2.9 % 05/30/24 15:47 Baso % (Auto) 0.5 % 05/30/24 15:47 Neut # (Auto) 4.74 K/uL (1.40-6.50) 05/30/24 15:47 Lymph # (Auto) 1.87 K/uL (1.20-3.40) 05/30/24 15:47 Cameron # (Auto) 0.68 K/uL (0.11-0.59) H 05/30/24 15:47 Eos # (Auto) 0.22 K/uL (0.00-0.50) 05/30/24 15:47 Baso # (Auto) 0.04 K/uL (0.00-0.20) 05/30/24 15:47 Immature Gran # (Auto) 0.04 K/uL (0.01-0.20) 05/30/24 15:47 Sodium 135 mmol/L (136-145) L 06/01/24 06:10 Potassium 4.7 mmol/L (3.5-5.1) 06/01/24 06:10 Chloride 98 mmol/L (98-107) 06/01/24 06:10 Carbon Dioxide 29 mmol/L (21-32) 06/01/24 06:10 Anion Gap 8 (3-11) 06/01/24 06:10 BUN 25 mg/dl (6-23) H 06/01/24 06:10 Creatinine 1.00 mg/dl (0.6-1.4) 06/01/24 06:10 Est Cr Clr Drug Dosing 88.0 ml/min 06/01/24 06:10 eGFR 83.52 06/01/24 06:10 BUN/Creatinine Ratio 25.0 (10-20) H 06/01/24 06:10 Glucose 265 mg/dl (70-99(Fasting)) H 06/01/24 06:10 POC Glucose 286 mg/dl (70-99) H 06/01/24 07:46 Estimat Average Glucose 229 mg/dl 05/31/24 06:48 Hemoglobin A1c 9.6 % (4.5-5.6) H 05/31/24 06:48 Calcium 9.5 mg/dl (8.6-10.3) 06/01/24 06:10 Phosphorus 3.7 mg/dl (2.5-4.9) 06/01/24 06:10 Magnesium 1.8 mg/dl (1.7-2.4) 06/01/24 06:10 Total Bilirubin 0.4 mg/dl (0.2-1.0) 05/30/24 15:47 AST 19 U/L (13-39) 05/30/24 15:47 ALT 28 U/L (7-52) 05/30/24 15:47 Alkaline Phosphatase 110 U/L (34-104) H 05/30/24 15:47 Total Protein 6.9 gm/dl (6.0-8.3) 05/30/24 15:47 Albumin 3.8 gm/dl (3.4-5.0) 05/30/24 15:47 Globulin 3.1 gm/dl (2.5-4.0) 05/30/24 15:47 Albumin/Globulin Ratio 1.2 (0.9-2) 05/30/24 15:47 Urine Color Yellow 05/30/24 13:03 Urine Appearance Clear (Clear) 05/30/24 13:03 Urine pH 5.5 (4.5-7.5) 05/30/24 13:03 Ur Specific [place] 1.027 (1.000-1.030) 05/30/24 13:03 Urine Protein Negative (Negative) 05/30/24 13:03 Urine Glucose (UA) 3+ (Negative) H 05/30/24 13:03 Urine Ketones Negative (Negative) 05/30/24 13:03 Urine Blood Negative (Negative) 05/30/24 13:03 Urine Nitrite Negative (Negative) 05/30/24 13:03 Urine Bilirubin Negative (Negative) 05/30/24 13:03 Urine Urobilinogen Negative (Negative) 05/30/24 13:03 Ur Leukocyte Esterase Negative (Negative) 05/30/24 13:03 Impressions Chest X-Ray 05/30/24 15:28 EXAM: Radiographs of the Chest 2 Views INDICATION: Undergoing preoperative evaluation TECHNIQUE: Frontal and lateral views of the chest. COMPARISON: 05/25/2024 FINDINGS: Lungs and pleural spaces: No consolidation or pulmonary edema. No pleural effusion or pneumothorax. Heart: Normal shape and configuration. Mediastinum: Normal contour. Bones/joints: Degenerative changes noted throughout the spine. No acute osseous abnormality seen. Tubes, lines and devices: Stable dorsal column electrode. IMPRESSION: No acute cardiopulmonary disease. ACT 112: Negative or not required by law. Electronically signed by Tere Parkinson 05-30-2024 5:03 PM
[2024-06-01] MEDS: ACETAMINOPHEN 500 MG TAB PO PRN (20:04)
[2024-06-01] MEDS: LORazepam 0.5 MG TAB PO PRN (20:05)
[2024-06-02] MEDS: dexAMETHasone 8 MG in SYRINGE 0 ML IV SCH (08:18)
[2024-06-02 08:55] LABS: Hematocrit (blood only) 43.7 % (42.0-52.0); Hemoglobin 14.9 g/dl (14.0-18.0); Mean Corpuscular Hemoglobin 31.5 pg (25.0-34.0); Mean Corpuscular Hgb Conc 34.1 g/dL (32.0-36.0); Mean Corpuscular Volume 92.4 fL (80.0-100.0); Mean Platelet Volume 10.8 fL (9.4-12.4); Platelet Count 291 K/uL (130-400); RDW Standard Deviation 43.9 fL (36.4-46.3); Red Blood Count 4.73 M/uL (4.70-6.10); White Blood Count 18.69 K/ul (4.8-10.8)
[2024-06-02 09:01] LABS: BUN Creatinine Ratio 31.6 (10-20); Calcium 9.6 mg/dl (8.6-10.3); Creatinine Clr Calc Pharmacy 92.7 ml/min; Magnesium 1.8 mg/dl (1.7-2.4); Phosphorus 2.8 mg/dl (2.5-4.9); Potassium 4.5 mmol/L (3.5-5.1)
--- NOTE | 2024-06-02 09:33 | Hospitalist Progress Note ---
Date of Service June 02, 2024 Assessment & Plan (1) Myelopathy concurrent with and due to spinal stenosis of cervical region: Plan Assessment and plan: Cervical spinal stenosis with myelopathy S/p C6 corpectomy 05/31 -Pain control, DVT prophylaxis as per primary team I-S and bowel regimen Recurrent falls Peripheral neuropathy Continue Lyrica, PT/OT/fall precautions DM Type II: A1c 9.6, glycemic pharmacist following Blood sugars improved today, continue insulin Hx HTN/HLD: Continue losartan/statin Hx prostate CA: Completed radiation treatment Hx GERD/PUD: Continue Protonix DVT Px: Disposition As per primary team Full code Patient doing well today. Please continue home medications on discharge. No objection to discharge today from our standpoint. A total of 30 minutes was spent on chart review/reviewing diagnostic data/discussion with consultants/facilitating plan of care Admission and Anticipated Discharge Date Admission Date: May 30, 2024 Supervising Physician Co-Signing Physician Notes Pt seen and examined by me, care coordinated with NGUYEN Hutchison, pls refer to her note above for further detail. Pt is currently sitting up in bed, in NAD, overall reports feeling much better. feels his mobility is improved from yesterday. No fever, chills, chest pain, shortness of breath, abd. pain, n/v. Pt with cervical collar on, on RA, saturating 98%. Lungs CTAB, heart sounds regular, abdomen soft, nontender. Likely plan to DC home w/ HH. MD Katie Subjective Patient seen and examined. No apparent distress. Reports moving better this morning and is anxious for discharge home. Awaiting further eval with PT. Denies any issues overnight. Review of Systems Review of Systems: All systems reviewed & are unremarkable except as noted in HPI & below Physical Exam Physical Exam: General Appearance:Moderately built and nourished, no apparent distress Head: normocephalic, Atraumatic Eyes: normal inspection, EOMI Neck: supple, Trachea midline,+ mild flexion Respiratory/Chest: Normal breath sounds, CTA, No accessory muscle use Cardiovascular: S1, S2, No murmur Abdomen/GI:Soft, Non tender, Bowel sounds present Extremities/Musculoskeletal:normal inspection, no edema Back: Spinal stimulator Neurologic/Psych:AAOX3, decreased bilateral lower extremity sensation, decreased strength B/L LE 3-4/5 Right upper extremity diminished strength 4/5 Skin: normal color, warm MIGUELANGEL drain in place draining serosanguineous Results & Data Results & Data Vital Signs (Past 12 Hours) Vital Signs Temp Pulse Resp BP Pulse Ox O2 Del Method 06/02/24 07:21 36.6 C 66 16 161/76 H 98 Room Air 06/02/24 07:14 68 15 97 Room Air 06/02/24 03:40 70 16 95 Room Air 06/02/24 00:00 76 16 97 Room Air 06/01/24 23:13 36.5 C 74 15 169/80 H 97 Room Air Laboratory Results 06/02/24 06/02/24 06/01/24 Range/Units 08:32 07:59 19:49 WBC 18.69 H (4.8-10.8) K/ul RBC 4.73 (4.70-6.10) M/uL Hgb 14.9 (14.0-18.0) g/dl Hct 43.7 (42.0-52.0) % MCV 92.4 (80.0-100.0) fL MCH 31.5 (25.0-34.0) pg MCHC 34.1 (32.0-36.0) g/dL RDW Std Deviation 43.9 (36.4-46.3) fL RDW Coeff of Mathew 13.0 (11.5-14.5) % Plt Count 291 (130-400) K/uL MPV 10.8 (9.4-12.4) fL Sodium 137 (136-145) mmol/L Potassium 4.5 (3.5-5.1) mmol/L Chloride 99 (98-107) mmol/L Carbon Dioxide 30 (21-32) mmol/L Anion Gap 8 (3-11) BUN 30 H (6-23) mg/dl Creatinine 0.95 (0.6-1.4) mg/dl Est Cr Clr Drug Dosing 92.7 ml/min eGFR 88.83 BUN/Creatinine Ratio 31.6 H (10-20) Glucose 165 H (70-99(Fasting)) mg/dl POC Glucose 135 H 203 H (70-99) mg/dl Calcium 9.6 (8.6-10.3) mg/dl Phosphorus 2.8 (2.5-4.9) mg/dl Magnesium 1.8 (1.7-2.4) mg/dl 06/01/24 06/01/24 Range/Units 16:38 11:27 WBC (4.8-10.8) K/ul RBC (4.70-6.10) M/uL Hgb (14.0-18.0) g/dl Hct (42.0-52.0) % MCV (80.0-100.0) fL MCH (25.0-34.0) pg MCHC (32.0-36.0) g/dL RDW Std Deviation (36.4-46.3) fL RDW Coeff of Mathew (11.5-14.5) % Plt Count (130-400) K/uL MPV (9.4-12.4) fL Sodium (136-145) mmol/L Potassium (3.5-5.1) mmol/L Chloride (98-107) mmol/L Carbon Dioxide (21-32) mmol/L Anion Gap (3-11) BUN (6-23) mg/dl Creatinine (0.6-1.4) mg/dl Est Cr Clr Drug Dosing ml/min eGFR BUN/Creatinine Ratio (10-20) Glucose (70-99(Fasting)) mg/dl POC Glucose 159 H 217 H (70-99) mg/dl Calcium (8.6-10.3) mg/dl Phosphorus (2.5-4.9) mg/dl Magnesium (1.7-2.4) mg/dl Medications Administered Current Inpatient Medications Acetaminophen (Acetaminophen 500 Mg Tab) 1,000 mg PO Q8H PRN PRN Reason: MILD Pain Scale 1,2,3 & Pre PT Stop: 06/30/24 12:04 Last Admin: 06/01/24 20:04 Dose: 1,000 mg Al Hydrox/Mg Hydrox/Simethicone (Aluminum/Magnesium Susp 30 Ml Udc) 30 ml PO Q6H PRN PRN Reason: Dyspepsia Stop: 06/30/24 12:04 Atorvastatin Calcium (Atorvastatin 20 Mg Tab) 20 mg PO QPM WILL Stop: 06/29/24 20:59 Last Admin: 06/01/24 20:01 Dose: 20 mg Bisacodyl (Bisacodyl 10 Mg Supp) 10 mg AK DAILY PRN PRN Reason: Constipation Stop: 06/30/24 12:04 Cyanocobalamin (Cyanocobalamin (B-12) 500 Mcg Tablet) 1,000 mcg PO QAM WILL Stop: 06/30/24 08:59 Last Admin: 06/02/24 08:16 Dose: 1,000 mcg Dextrose (Dextrose 50% 50 Ml Syringe) 25 - 50 ml IV UD PRN; Protocol PRN Reason: Hypoglycemia Protocol Stop: 06/29/24 15:59 Diphenhydramine HCl (Diphenhydramine Capsule 25 Mg Cap) 25 mg PO Q6H PRN PRN Reason: Allergic Rhinitis/Insomnia Stop: 06/30/24 12:04 Duloxetine HCl (Duloxetine Hcl 20 Mg Cap) 20 mg PO BID WILL Stop: 06/29/24 20:59 Last Admin: 06/02/24 08:16 Dose: 20 mg Epinephrine (Racepinephrine 2.25% Nebu Soln 0.5 Ml Vial) 0.5 ml INH NOW PRN PRN Reason: If stridor present Famotidine (Famotidine 20 Mg Tab) 20 mg PO Q12H PRN PRN Reason: Dyspepsia Stop: 06/30/24 12:04 Glucagon (Glucagon For Inj 1 Mg Vial) 1 mg SQ UD PRN; Protocol PRN Reason: Hypoglycemia Protocol Stop: 06/29/24 15:59 Glucose (Glucose 40% Gel 15 Gm Tube) 15 - 30 gm PO UD PRN; Protocol PRN Reason: Hypoglycemia Protocol Stop: 06/29/24 15:59 Glucose (Glucose 10 Tab/Tube) 4 - 8 tab PO UD PRN; Protocol PRN Reason: Hypoglycemia Protocol Stop: 06/29/24 15:59 Hydromorphone HCl (Hydromorphone Inj 0.5 Mg/0.5 Ml Syr) 0.5 mg IV Q3H PRN PRN Reason: MOD pain (scale 4-6) & Pre PT Stop: 06/13/24 15:27 Hydromorphone HCl (Hydromorphone Inj 1 Mg/Ml Syringe) 1 mg IV Q3H PRN PRN Reason: severe pain (scale 7-10) Stop: 06/13/24 15:27 Last Admin: 05/31/24 12:29 Dose: 1 mg Hydroxyzine HCl (Hydroxyzine Hcl 25 Mg Tab) 25 mg PO Q8H PRN PRN Reason: Anxiety Stop: 06/30/24 12:04 Dexamethasone 8 mg/ Syringe 2 mls @ 1 mls/min IV NOW PRN PRN Reason: If stridor present Promethazine HCl (Phenergan) 12.5 mg in 50.5 mls @ 202 mls/hr IV Q6H PRN PRN Reason: Nausea And Vomiting Stop: 06/30/24 12:04 Dexamethasone 8 mg/ Syringe 2 mls @ 1 mls/min IV DAILY [facility] Stop: 07/02/24 08:59 Last Admin: 06/02/24 08:18 Dose: 1 mls/min Influenza Virus Vaccine Quadrival (Do Not Administer Flu Vaccine) 1 each N/A PRN PRN PRN Reason: Notification Stop: 06/30/24 12:04 Insulin Aspart (Insulin Aspart Per Unit Charge) 0 units SC ACHS [facility] Stop: 06/30/24 00:00 Last Admin: 06/02/24 08:23 Dose: 14 units Insulin Glargine (Lantus Per Unit Charge) 60 units SC DAILY [facility] Stop: 07/01/24 08:59 Last Admin: 06/02/24 08:23 Dose: 60 units Lorazepam (Lorazepam 0.5 Mg Tab) 0.5 mg PO Q8H PRN PRN Reason: Sedation/Anxiety Stop: 06/30/24 12:04 Last Admin: 06/01/24 20:05 Dose: 0.5 mg Lorazepam (Lorazepam 2 Mg/1 Ml Vial) 0.5 mg IV Q8H PRN PRN Reason: Sedation/Anxiety Stop: 06/30/24 12:04 Losartan Potassium (Losartan Potassium 50 Mg Tab) 100 mg PO QAM [facility] Stop: 06/30/24 08:59 Last Admin: 06/02/24 08:16 Dose: 100 mg Magnesium Hydroxide (Magnesium Hydroxide Susp 30 Ml Udc) 30 ml PO Q24H PRN PRN Reason: Constipation Stop: 06/30/24 12:04 Metoclopramide HCl (Metoclopramide Hcl Inj 5 Mg/Ml 2 Ml Vial) 10 mg IV Q6H PRN PRN Reason: Nausea &/or Vomiting Stop: 06/30/24 12:04 Miscellaneous (Carbohydrates For Hypoglycemia ) 15 - 30 gm PO UD PRN PRN Reason: Hypoglycemia Treatment Stop: 06/29/24 15:59 Miscellaneous Information (Pharmacy Glycemic Mgmt Consult) 1 each N/A UD PRN PRN Reason: Consult Stop: 06/29/24 15:27 Naloxone HCl (Naloxone Hcl 0.4 Mg/1 Ml Vial/Carp) 0.1 mg IV Q5M PRN PRN Reason: Oversedation/Resp depression Stop: 06/30/24 12:04 Ondansetron HCl (Ondansetron Inj 2 Mg/Ml 2 Ml Vial) 4 mg IV Q6H PRN PRN Reason: Nausea &/or Vomiting Stop: 06/30/24 12:04 Ondansetron HCl (Ondansetron 4 Mg Od Tab) 4 mg PO Q6H PRN PRN Reason: Nausea Stop: 06/30/24 12:04 Oxycodone HCl (Oxycodone Hcl Ir 5 Mg Tab (Immediate Release)) 5 - 10 mg PO Q4H PRN PRN Reason: mod to severe pain Stop: 06/13/24 15:27 Last Admin: 05/31/24 17:12 Dose: 10 mg Pantoprazole Sodium (Pantoprazole 40 Mg Tab) 40 mg PO QAM WILL Stop: 06/30/24 08:59 Last Admin: 06/02/24 08:16 Dose: 40 mg Pneumococcal Polyvalent Vaccine (Do Not Administer Pneumococcal Vaccine) 1 each N/A PRN PRN PRN Reason: Notification Stop: 06/30/24 12:04 Polyethylene Glycol (Polyethylene (Miralax) 17 Gm Pack) 17 gm PO DAILY PRN PRN Reason: Constipation Stop: 06/29/24 19:29 Pregabalin (Pregabalin 150 Mg Cap) 300 mg PO BID [facility] Stop: 06/29/24 20:59 Last Admin: 06/02/24 08:22 Dose: 300 mg Senna/Docusate Sodium (Docusate Sodium/Senna 50/8.6mg Tab) 2 tab PO HS WILL Stop: 06/30/24 20:59 Last Admin: 06/01/24 20:05 Dose: 2 tab Sodium Biphosphate/Sodium Phosphate (Sod Phosphate/Sod Biphosphate Enema 132 Ml Btl) 132 ml AK ONE PRN PRN Reason: Constipation Stop: 06/30/24 12:04 Tramadol HCl (Tramadol Hcl 50 Mg Tablet) 50 - 100 mg PO Q4H PRN PRN Reason: Moderate-Severe pain & Pre PT Stop: 06/29/24 15:27 Last Admin: 06/01/24 08:05 Dose: 100 mg Vitamin D (Cholecalciferol 125 Mcg (5,000 Units) Tab) 125 [facility] [place] Stop: 06/30/24 08:59 Last Admin: 06/02/24 08:15 Dose: 125 mcg
--- NOTE | 2024-06-02 11:12 | Pharmacy Report ---
Pharmacy Glycemic Short Note 2 - Date of Service June 02, 2024 - Glycemic Short BSG Results (Last 24 hours): 06/01/24 06/01/24 06/01/24 11:27 16:38 19:49 Glucose POC Glucose 217 H 159 H 203 H 06/02/24 06/02/24 07:59 08:32 Glucose 165 H POC Glucose 135 H OUTPATIENT ANTIDIABETIC REGIMEN: * Lantus 60 units SC HS * Humalog SSI prn * Tirzepatide 15 mg SC every Wednesday HbA1c: * 9.6% (05/31/24) ASSESSMENT: 06/02 * Patient received total of 133 units of insulin yesterday, of which 60 units were basal * Fasting BSG 135 mg/dL - dexamethasone reordered again this AM, will continue with same basal dosed in AM to be given with steroids (patient typically takes basal at HS) * No change to CF/CR 05/31 * 63 yo M admitted on 05/30/24 secondary to back pain and direct admit for surgery. Pharmacy has been consulted to assist with inpatient glycemic management. Patient is a Type 2 diabetic as an outpatient. Please refer to outpatient regimen and most recent HbA1c above. * Patient is POD #0 from a spinal surgery with Dr. Mkcee. No steroids were given intraoperatively. However, patient is scheduled to receive 8 mg of IV Dexamethasone every 8 hours x 3 doses starting now. Ordered a T2DM diet and tolerating postop. * Received 50 mg of Lantus last night and required 27 units of correctional/prandial insulin overnight. BSGs were: 299-243-165 mg/dL. * Fasting BSG was below goal at 96 mg/dL this AM, likely due to NPO status for surgery. Postop BSG was 163 mg/dL and recheck prior to lunch was 203 mg/dL. Will give 20 units of Lantus now x 1 to help cover steroids. Targeting total daily basal dose of 70 units which is stress from home. Continue with previous HS basal dose. * Tightened Novolog parameters this AM and when lunchtime BSG was greater than 200 mg/dL, tightened carb ratio even further. PLAN FOR INPATIENT GLYCEMIC CONTROL: * Basal insulin * Lantus 60 units daily * Bolus insulin * NovoLog per scale ACHS or Q6hrs while NPO * Goal Range: Low 110 mg/dL - High 140 mg/dL * Correction Factor: 12 mg/dL/unit * Nutritional / Prandial insulin per carb ratio of 1 unit per 4 grams CHO consumed
--- NOTE | 2024-06-02 11:34 | Orthopedic Progress Note ---
Date of Service June 02, 2024 Assessment & Plan (1) Myelopathy concurrent with and due to spinal stenosis of cervical region: Plan: At this time we will discontinue his drain today. Will continue with therapy today. Anticipate discharge on tomorrow with home health. Admission and Anticipated Discharge Date Admission Date: May 30, 2024 Subjective Patient's pain is well-controlled. He feels he is swallowing well. No hoarseness. He feels his leg and arm function steadily improving. He is tolerating physical therapy. Physical Exam Physical Exam: On exam is able to stand. strength is improved. Results & Data Vital Signs (Past 12 Hours) Vital Signs Temp Pulse Resp BP Pulse Ox O2 Del Method 06/02/24 07:21 36.6 C 66 16 161/76 H 98 Room Air 06/02/24 07:14 68 15 97 Room Air 06/02/24 03:40 70 16 95 Room Air 06/02/24 00:00 76 16 97 Room Air The order specified images get
[2024-06-03] MEDS: LANTUS PER UNIT CHARGE SC SCH (08:53)
--- NOTE | 2024-06-03 09:25 | Hospitalist Progress Note ---
Date of Service June 03, 2024 Assessment & Plan (1) Myelopathy concurrent with and due to spinal stenosis of cervical region: Plan Assessment and plan: Cervical spinal stenosis with myelopathy POD# 3 s/p S/P C6 corpectomy with Dr. Mckee. Per ortho for pain control, wound care, anticoagulation and activities Monitor H&H, continue incentive spirometry, PT/OT when appropriate Recurrent falls Peripheral neuropathy Continue Lyrica, PT/OT/fall precautions DM Type II: A1c 9.6, glycemic pharmacist following Blood sugars improved today, continue insulin Hx HTN/HLD: Continue losartan/statin Hx prostate CA: Completed radiation treatment Hx GERD/PUD: Continue Protonix DVT Px: Disposition As per primary team Full code Patient doing well today. Please continue home medications on discharge. No objection to discharge today from our standpoint. A total of 32 minutes was spent on chart review/reviewing diagnostic data/ discussion with consultants/facilitating plan of care Admission and Anticipated Discharge Date Admission Date: May 30, 2024 Supervising Physician Co-Signing Physician Notes Pt seen and examined by me, care coordinated with NGUYEN Hutchison, pls refer to her note above for further detail. Pt is currently sitting up in bed, in NAD, overall reports feeling much better. feels his mobility is improved from yesterday. PT at the bedside. No fever, chills, chest pain, shortness of breath, abd. pain, n/v. Pt with cervical collar on, on RA, Lungs CTAB, heart sounds regular, abdomen soft, nontender. Likely plan to DC home w/ HH. MD Katie Subjective Patient is sitting in his hospital bed in no apparent distress; smiling. He is tolerating breakfast and states that swallowing is going well. Complains of a slight sore throat, but no pressure around incision site. Surgical drain was removed on 06/02 Using a walker with PT. Plan for DC today per Ortho; ok to be discharged medically. We will sign off today. Review of Systems Review of Systems: Neuro: (-) Falls, trauma, slurred speech HEENT: (-) RAYO, dizziness, dysphagia, visual or auditory changes CV: (-) CP, palpitations, swelling Resp: (-) SOB GI: (-) appetite changes, N/V/D, bowel changes : (-) urinary changes Skin: (-) rashes Psych: (-) anxiety, depression Physical Exam Physical Exam: Neuro: AAOx4, PERRLA, no aphagia, memory changes, CNII-XII grossly intact HEENT: head normocephalic, moist mucus membranes. CV: S1/S2, (-) M/G/R, (-) edema, cap refill < 3 seconds Resp: Lungs CTA in all thompson. On RA GI: Abdomen S/NT/ND, Ax4 bowel sounds, (-) CVA tenderness Musculoskeletal: 5/5 B/L UE strength, 5/5 B/L LE strength. Uses a walker for ambulation Skin: (-) rashes , (-) erythema. Anterior neck dressing C/D/I Psych: euthymic mood Results & Data Results & Data Vital Signs (Past 12 Hours) Vital Signs Temp Pulse Resp BP Pulse Ox O2 Del Method 06/03/24 07:21 36.4 C L 67 18 145/90 H 98 Room Air 06/03/24 04:37 36.4 C L 68 18 136/80 98 Room Air 06/03/24 00:20 36.6 C 72 14 131/76 92 Room Air
--- NOTE | 2024-06-03 10:03 | Orthopedic Progress Note ---
Date of Service June 03, 2024 Assessment & Plan (1) Myelopathy concurrent with and due to spinal stenosis of cervical region: Plan: I have outlined his restrictions. Patient is going to return home today. Will see him in the office as scheduled. Admission and Anticipated Discharge Date Admission Date: May 30, 2024 Subjective Patient's pain is controlled. He feels his upper extremity lower extremity function is improving. He is anxious to return home. Physical Exam Physical Exam: On exam he is currently bed. His improved strength testing upper and lower extremities. There is no appreciable swelling to the cervical spine. Dressings in place. Results & Data Vital Signs (Past 12 Hours) Vital Signs Temp Pulse Resp BP Pulse Ox O2 Del Method 06/03/24 07:21 36.4 C L 67 18 145/90 H 98 Room Air 06/03/24 04:37 36.4 C L 68 18 136/80 98 Room Air 06/03/24 00:20 36.6 C 72 14 131/76 92 Room Air
== END 2024-06-03 12:55 | disposition home health service (06) | DRG 472 ==
LOC: ED 10:56 → EDINP 11:56 → 3N 15:30

== ENCOUNTER 2024-07-25 06:19 | Inpatient (IN) ==
--- NOTE | 2024-07-24 09:55 | Anesthesiology Consultation ---
Date of Service July 24, 2024 Assessment & Plan (1) Encounter for pre-operative examination: - Check BSG DOS - Infectious disease screening: Per assessment on 07/20/24- No known recent infectious disease contacts or current infectious disease symptoms. - S/P C6 Corpectomy, C5-7 ACDF (05/31/24): Grade view 1, Glidescope#4, ETT 7.5 at [facility] - Rizwan instructions: Patient informed by PAT to stop 7 days prior to surgery - voiced understanding. DOS 07/25/24. Advised last dose to be 07/15/24. Chart Review Chart Review: Acceptable Risk for Surgery and Patient NOT seen in Pre Admission Testing History Surgery Operation Date: 07/25/24 07:45 Proposed Procedures p L4-S1 Decompression and Fusion, Spinal Cord Monitoring - Km Mckee DO s with Spinal Cord Leads and Generator Removal and Replacement of Spinal Cord Generator and Leads - Km Mckee DO Height/Weight Height: 5 ft 11 in Weight: 99.79 kg Allergies Allergy/AdvReac Type Severity Reaction Status Date / Time No Known Allergies Allergy Verified 07/20/24 10:18 Medications Home Medications Medication Instructions Recorded Confirmed Last Taken atorvastatin 20 mg tablet (Lipitor) 20 mg PO QPM 05/26/24 07/20/24 05/29/24 duloxetine 20 mg capsule,delayed 20 mg PO BID 05/26/24 07/20/24 05/30/24 release (Cymbalta) insulin glargine 100 unit/mL (3 60 unit subcut QPM 05/26/24 07/20/24 05/29/24 mL) subcutaneous pen (Lantus Solostar U-100 Insulin) insulin lispro 100 unit/mL 1 sliding scale dose subcut UD PRN 05/26/24 07/20/24 Unknown subcutaneous pen BS levels irbesartan 300 mg tablet (Avapro) 300 mg PO QAM 05/26/24 07/20/24 05/30/24 pantoprazole 20 mg tablet,delayed 20 mg PO QAM 05/26/24 07/20/24 05/30/24 release (Protonix) pregabalin 300 mg capsule 300 mg PO BID 05/26/24 07/20/24 05/30/24 tirzepatide 15 mg/0.5 mL 15 mg subcut WK 05/26/24 07/20/24 07/15/24 subcutaneous pen injector (Rizwan) cholecalciferol (vitamin D3) 125 5,000 unit PO QAM 05/30/24 07/20/24 05/30/24 mcg (5,000 unit) tablet cyanocobalamin (vitamin B-12) 1,000 mcg PO QAM 05/30/24 07/20/24 05/30/24 1,000 mcg tablet multivitamin 1 tab PO QAM 05/30/24 07/20/24 05/30/24 tramadol 50 mg tablet 50 mg PO Q6H PRN pain, moderate #2 05/31/24 07/20/24 Unknown tabs acetaminophen 500 mg capsule 500 mg PO QID PRN Pain 07/20/24 07/20/24 Unknown Past Medical History Medical History History of kidney stones Passed on own History of prostate cancer 2011 - s/p XRT only (no chemo/surgery) Hx of gastric ulcer Bleeding ulcers (~01/2023) Resolved, no current/recent issues Hypertension Type 2 diabetes mellitus IDDM Past Family History Family History Other No family history of adverse response to anesthesia Past Surgical History Surgical History History of cervical corpectomy (05/31/25) C6 Corpectomy, C5-7 ACDF History of esophagogastroduodenoscopy (EGD) (01/2023) with cauterization of bleeding ulcers Hx of colonoscopy Hx of fusion of cervical spine 2017 (+ hardware) S/P insertion of spinal cord stimulator (2022) Social History Smoking Status: Never smoker Do You Dip or Chew Tobacco: No Hx Alcohol Use: Yes Alcohol type: beer alcohol intake frequency: holidays/special occasions only Hx Substance Use: No substance use type: does not use Testing Laboratory Results 07/15/24 WBC 7.35 H/H 15.4/45.2 PLATELETS 288 SODIUM 137 POTASSIUM 4.7 CHLORIDE 104 CO2 32.0 BUN 15.0 CREATININE 1.00 GLUCOSE 155 PT 12.1 PTT 30.6 INR 1.05 05/31/24 HGBA1C 9.6% (Surgeon ordered/aware) 05/25/24 T&S B+ Ab- Electrocardiogram Date: 05/25/24 NSR, rate 75 bpm Left anterior fascicular block Incomplete RBBB Poor R wave progression, consider anterior WI vs lead placement vs LVH Chest X-Ray Date: 05/25/24 No acute cardiopulmonary findings.
[2024-07-25] MEDS ORDERED: fentaNYL citrate PF 100 MCG/2 ML VIAL ONE ×2 (06:46→10:21)
[2024-07-25] MEDS ORDERED: MIDAZOLAM HCL 1 MG/ML 2ML VIAL ONE (06:46)
[2024-07-25] MEDS ORDERED: ONDANSETRON INJ 2 MG/ML 2 ML VIAL ONE ×2 (06:48→10:15)
[2024-07-25] MEDS ORDERED: LIDOCAINE 2% 2 ML VIAL/AMP(20MG/ML) INFIL ONE (06:48)
[2024-07-25] MEDS ORDERED: PROPOFOL IV EMULSION 10 MG/ML 20 ML VIAL IV ONE (06:48)
[2024-07-25] MEDS ORDERED: ROCURONIUM BROMIDE 10 MG/ML 5 ML VIAL IV ONE ×3 (06:48→09:25)
[2024-07-25] MEDS ORDERED: DEXAMETHASONE SOD INJ 4 MG/ML VIAL ONE (06:48)
[2024-07-25] MEDS: LR 60ML/HR IV SCH (06:56)
[2024-07-25] MEDS: LR 15ML/HR IV SCH (06:56)
[2024-07-25] MEDS: CeleBREX 200 MG CAP PO SCH (06:57)
[2024-07-25] MEDS: GABAPENTIN 300 MG CAP PO SCH (06:57)
[2024-07-25] MEDS: ACETAMINOPHEN 500 MG TAB PO SCH (06:57)
[2024-07-25] MEDS ORDERED: ATROPINE SULFATE 0.1 MG/ML 10ML SYR IV PRN (07:33)
[2024-07-25] MEDS ORDERED: ePHEDrine sulfate 50 MG/ML AMP IV PRN (07:33)
[2024-07-25] MEDS ORDERED: HYDROmorphone INJ 2 MG/ML SYR/VIAL IV PRN (07:33)
[2024-07-25] MEDS ORDERED: ONDANSETRON INJ 2 MG/ML 2 ML VIAL IV PRN ×2 (07:33→13:42)
--- NOTE | 2024-07-25 07:50 | History & Physical Bridge Note ---
Date of Service July 25, 2024 History & Physical Bridge Note I have examined the patient, reviewed the History & Physical and in the interval since the performance of the History & Physical I have noted the following changes of clinical significance: no changes noted
--- NOTE | 2024-07-25 07:51 | History & Physical Report ---
Date of Service July 25, 2024 Assessment & Plan (1) Multilevel lumbosacral spondylosis with radiculopathy: Plan: L4-S1 decompression and fusion, removal of spinal cord generator and leads, replacement of spinal cord generator and leads History of Present Illness Chief Complaint: Back and leg pain Primary Care Provider: Estelle Okeefe DO This is a 63-year-old male who presents for chronic persistent back and leg pain after failing course of nonoperative care is here for surgical intervention. Allergies Allergy/AdvReac Type Severity Reaction Status Date / Time No Known Allergies Allergy Verified 07/25/24 06:29 Home Medications Medication Instructions Recorded Confirmed Type atorvastatin 20 mg tablet (Lipitor) 20 mg PO QPM 05/26/24 07/25/24 History duloxetine 20 mg capsule,delayed 20 mg PO BID 05/26/24 07/25/24 History release (Cymbalta) insulin glargine 100 unit/mL (3 60 unit subcut QPM 05/26/24 07/25/24 History mL) subcutaneous pen (Lantus Solostar U-100 Insulin) insulin lispro 100 unit/mL 1 sliding scale dose subcut UD PRN 05/26/24 07/25/24 History subcutaneous pen BS levels irbesartan 300 mg tablet (Avapro) 300 mg PO QAM 05/26/24 07/25/24 History pantoprazole 20 mg tablet,delayed 20 mg PO QAM 05/26/24 07/25/24 History release (Protonix) pregabalin 300 mg capsule 300 mg PO BID 05/26/24 07/25/24 History tirzepatide 15 mg/0.5 mL 15 mg subcut WK 05/26/24 07/25/24 History subcutaneous pen injector (Mounjaro) cholecalciferol (vitamin D3) 125 5,000 unit PO QAM 05/30/24 07/25/24 History mcg (5,000 unit) tablet cyanocobalamin (vitamin B-12) 1,000 mcg PO QAM 05/30/24 07/25/24 History 1,000 mcg tablet multivitamin 1 tab PO QAM 05/30/24 07/25/24 History tramadol 50 mg tablet 50 mg PO Q6H PRN pain, moderate #2 05/31/24 07/25/24 Rx tabs acetaminophen 500 mg capsule 500 mg PO QID PRN Pain 07/20/24 07/25/24 History Past Med/Surg History Problem List (Updated 07/25/24 @ 07:51 by Km Mkcee DO) Multilevel lumbosacral spondylosis with radiculopathy Myelopathy concurrent with and due to spinal stenosis of cervical region (Acute) Encounter for pre-operative examination Medical History History of kidney stones Passed on own History of prostate cancer 2011 - s/p XRT only (no chemo/surgery) Hx of gastric ulcer Bleeding ulcers (~01/2023) Resolved, no current/recent issues Hypertension Type 2 diabetes mellitus IDDM Surgical History History of cervical corpectomy (05/31/25) C6 Corpectomy, C5-7 ACDF History of esophagogastroduodenoscopy (EGD) (01/2023) with cauterization of bleeding ulcers Hx of colonoscopy Hx of fusion of cervical spine 2016 (+ hardware) S/P insertion of spinal cord stimulator (2022) Family History Other No family history of adverse response to anesthesia Social History Smoking Status: Never smoker Second Hand Exposure: No; Do You Dip or Chew Tobacco: No; Tobacco Cessation Education Requested by Patient: No Hx Alcohol Use: Yes Alcohol type: beer Hx Substance Use: No Preferred Language: Bur[place]ian Communication Ability: Effective Weight And Test Bar Clerk Required: No Beliefs That Will Affect Care: None Current Living Situation: Spouse Other Information That Helps Us Care for You: No Feels Safe at Home: Yes Safety Concerns: Feels Safe At This Time Assistive Devices: Cane and Walker Physical Exam Physical Exam: Patient is alert and oriented heart regular rhythm Lungs clear Results & Data Results & Data Vital Signs (Past 12 Hours) Vital Signs Temp Pulse Resp BP Pulse Ox O2 Del Method 07/25/24 06:41 36.4 C L 69 18 148/86 H 98 Room Air
[2024-07-25] MEDS: ceFAZolin 2000MG 2,000 MG/15 ML SYR IV SCH ×2 (07:58→16:52)
[2024-07-25] MEDS ORDERED: ePHEDrine sulfate 50 MG/5 ML SYR ONE (08:20)
[2024-07-25] MEDS ORDERED: PHENYLEPHRINE 100MCG/ML 5ML SYR ONE (08:20)
[2024-07-25] MEDS ORDERED: PHENYLEPHRINE HCL 10 MG/ML VIAL ONE (08:37)
[2024-07-25] MEDS: ceFAZolin 330 MG/ML 1 GM VIAL ONE ×2 (08:48→16:07)
[2024-07-25] MEDS: BUPIVACAINE/EPINEPHRINE 0.25% 1:200,000 30 ML VIAL ONE ×2 (10:02→10:22)
[2024-07-25] MEDS ORDERED: SUGAMMADEX SODIUM 200 MG/2 ML VIAL IV ONE (10:14)
[2024-07-25] MEDS: FLOSEAL HEMOSTATIC MATRIX 10ML TOP ONE (11:06)
--- NOTE | 2024-07-25 11:20 | Operative Report ---
Post Operative Report Pre & Post Diagnosis Operation Date: 07/25/24 07:45 Pre-Op Diagnosis: #1 lumbar spondylosis with radiculopathy. #2 lumbar spinal stenosis. #3 lumbar spondylolisthesis. #4 failed spinal cord stimulator Post-Op Diagnosis: Same I identified the patient and participated in the time-out.: Yes Procedure Operation Date: 07/25/24 07:45 Actual Procedures #1 lumbar decompression with bilateral medial facetectomies and foraminotomies L3-L4, L4-5 and L5-S1. #2 posterior spinal fusion L4-S1. #3 placed posterior instrumentation using camber L4-S1. #4 interbody fusion L4-L5 L5-S1. #5 placement Spira 14 x 26 mm x 2 at L4-5 and 12 x 26 mm x 2 at L5-S1. #6 placement locally harvested morselized autograft posterior gutters. #7 balta cement fuse collagen sponge combined with Koros in the posterior lateral gutters and os design bone grafting interbody space. #8 placement locally harvested morselized autograft posterior gutters. #9 placement of versa wrap of the exposed dura. #10 revision laminotomies T7, T8 and T9. #2 removal of spinal cord stimulator paddle and generator. #3 placement of [employer] 32-lead spinal cord stimulator paddle from T7-T8 with rechargeable battery. Surgeon mK Mceke, DO Injury Prevention Coordinator Tess Chi Estimated Blood Loss 350 Findings Consistent with Post-Op Diagnosis Specimens None Indications This is a 63-year-old male well-known to me the presents publish diagnosis of failing course of nonoperative care is here for surgical invention. Description of Procedure Patient was met with identified informed consent obtained. Patient was then taken to the operative suite underwent to the patient placed in a prone position on the Honorio table atop the Brendan frame. All bony promises well-padded eyes inspected to ensure no external pressure placed upon them. This point the thoracolumbar spine was prepped and draped no sterile fashion. Sharp dissection with the assistance of Bovie cautery performed down to and exposing the lamina transverse processes of L4-L5 and the sacral ala bilaterally. From a [place] fashion a complete laminectomy of L5 was performed including bilateral medial facetectomies and foraminotomies addressing severe spinal stenosis. This was followed by complete laminectomy of L4 again addressing severe subarticular and foraminal stenosis. Lastly partial laminectomy L3 addressing severe subarticular spinal stenosis. After complete decompression pedicle screws were placed in L for L5 and S1 levels bilaterally with assistance of fluoroscopy and appropriate size christopher contoured and placed. By way of transforaminal approach and right a discectomy of L5-S1 was performed endplates guided to subcortical bleeding bone and a 12 x 26 mm Spira cage filled with os design tapped into position. Then proceeded to the left transforaminal region at L5-S1. Again discectomy performed. Endplates guarded to subcortical and bone. A second 12 x 26 mm spiral cage filled with os design bone graft tapped in position. Then proceeded to all for L5 by way to transfer approach on the left a discectomy of L4-5 was performed endplates guided to subcortical bleeding bone and a 14 x 26 mm spiral cage filled with os designed tapped in position. Then proceeded to the right transforaminal region. Again discectomy performed at L4-5. Endplates guided to subcortical bleeding bone. A second 14 x 26 mm Spira cage filled with os design bone graft tapped position. The rods were then compressed and locked in final position bilaterally. The transverse processes of L4-L5 and the sacral ala burred to subcortical bleeding bone. Infuse collagen sponge, with Koros and local autograft placed in the posterior gutters. Versa wrap placed over the exposed dura. 15 round MIGUELANGEL drain inserted. The incision was then closed with 1 Vicryl the fascia 2-0 Vicryl subcutaneously and 4 Monocryl for final skin closure. We then proceeded to the second stage of the procedure. I removed the battery over the right upper buttock without difficulty. I then approached the laminotomy site. Sharp dissection with assisted Bovie cautery performed down to and exposing the previous laminotomy site and T9 I extended the dissection to expose T7 and T8 as well. A revision laminotomy of T9 was performed and I was able to successfully remove the previous paddle without difficulty. I extended the laminotomy through T8 and T7 to remove all epidural scarring so I could safely place a new paddle. The paddle extended from T7-T8. It cycled into position. A new pocket was then created over the right flank as the old battery pocket was in poor position and irritating the patient. By way of a trocar the leads were taken to the new pocket attached the battery tested for impedances. All incisions were then copiously irrigated battery placed within the pocket and all incisions closed with subcutaneous Vicryl and 4 Monocryl for final closure. Steri-Strips sterile dressing placed. Patient waken taken to PACU stable condition. Please note spinal cord monitoring was utilized at the procedure no changes noted. Tess Chi was present at the entire surgery involved the patient positioning complex portion of the surgery and fashion closure. I attest to the content of the Intraoperative Record and any orders documented therein. Any exceptions are noted below.
[2024-07-25] MEDS: INSULIN ASPART PER UNIT CHARGE SC STA (12:17)
[2024-07-25] MEDS: fentaNYL citrate PF 100 MCG/2 ML VIAL IV PRN (12:30)
--- NOTE | 2024-07-25 13:06 | Anesthesiology Progress Note ---
Date of Service July 25, 2024 Anesthesia Post Procedure Vital Signs Vital Signs: Temp Pulse Pulse Resp BP Pulse Ox O2 Del Method 07/25/24 12:45 36.5 C 80 15 138/71 94 Nasal Cannula 07/25/24 12:35 77 13 132/70 94 Nasal Cannula 07/25/24 12:25 76 13 103/52 L 98 Nasal Cannula 07/25/24 12:15 75 13 144/73 H 97 Oxymask 07/25/24 12:05 72 13 135/68 96 Oxymask 07/25/24 11:55 74 15 131/74 98 Oxymask 07/25/24 11:45 73 14 118/65 94 Oxymask 07/25/24 11:37 36.1 C L 68 20 110/56 L 98 Oxymask 07/25/24 06:41 36.4 C L 69 18 148/86 H 98 Room Air O2 Flow Rate 07/25/24 12:45 2 07/25/24 12:35 2 07/25/24 12:25 2 07/25/24 12:15 2 07/25/24 12:05 4 07/25/24 11:55 6 07/25/24 11:45 6 07/25/24 11:37 8 07/25/24 06:41 Pain Intensity Lower Back: Pain Intensity: 8 Back: Pain Intensity: 2 Transfer of Care Handoff Completed per policy Notes Mental Status: alert / awake / arousable and participated in evaluation Patient Amnestic to Procedure: Yes Nausea / Vomiting: adequately controlled Pain: adequately controlled Airway Patency, RR, SpO2: stable & adequate BP & HR: stable & adequate Hydration State: stable & adequate Anesthetic Complications: no major complications apparent and Pt Satisfied with anesthetic care
[2024-07-25] MEDS ORDERED: HYDROmorphone INJ 0.5 MG/0.5 ML SYR IV PRN (13:42)
[2024-07-25] MEDS ORDERED: DO NOT ADMINISTER FLU VACCINE PRN (13:42)
[2024-07-25] MEDS ORDERED: DO NOT ADMINISTER PNEUMOCOCCAL VACCINE PRN (13:42)
[2024-07-25] MEDS ORDERED: traMADol HCL 50 MG TABLET PO PRN (13:42)
[2024-07-25] MEDS ORDERED: FAMOTIDINE 20 MG TAB PO PRN (13:42)
[2024-07-25] MEDS ORDERED: HYDROmorphone INJ 1 MG/ML SYRINGE IV PRN (13:42)
[2024-07-25] MEDS ORDERED: PHARMACY GLYCEMIC MGMT CONSULT PRN (13:42)
[2024-07-25] MEDS ORDERED: ALUMINUM/MAGNESIUM SUSP 30 ML UDC PO PRN (13:42)
[2024-07-25] MEDS ORDERED: MAGNESIUM HYDROXIDE SUSP 30 ML UDC PO PRN (13:42)
[2024-07-25] MEDS ORDERED: diphenhydrAMINE Capsule 25 MG CAP PO PRN (13:42)
[2024-07-25] MEDS ORDERED: LORazepam 2 MG/1 ML VIAL IV PRN (13:42)
[2024-07-25] MEDS ORDERED: SOD PHOSPHATE/SOD BIPHOSPHATE ENEMA 132 ML BTL PR PRN (13:42)
[2024-07-25] MEDS ORDERED: PROMETHAZINE 12.5 MG/50.5 ML BAG IV PRN (13:42)
[2024-07-25] MEDS ORDERED: ONDANSETRON 4 MG OD TAB PO PRN (13:42)
[2024-07-25] MEDS ORDERED: METOCLOPRAMIDE HCL INJ 5 MG/ML 2 ML VIAL IV PRN (13:42)
[2024-07-25] MEDS ORDERED: bisacodyL 10 MG SUPP PR PRN (13:42)
[2024-07-25] MEDS ORDERED: NALOXONE HCL 0.4 MG/1 ML VIAL/CARP IV PRN (13:42)
[2024-07-25] MEDS ORDERED: hydrOXYzine HCl 25 MG TAB PO PRN (13:42)
[2024-07-25] MEDS ORDERED: LORazepam 0.5 MG TAB PO PRN (13:42)
[2024-07-25] MEDS ORDERED: GLUCAGON FOR INJ 1 MG VIAL SQ PRN (14:00)
[2024-07-25] MEDS ORDERED: GLUCOSE 10 TAB/TUBE PO PRN (14:00)
[2024-07-25] MEDS ORDERED: GLUCOSE 40% GEL 15 GM TUBE PO PRN (14:00)
[2024-07-25] MEDS ORDERED: CARBOHYDRATES FOR HYPOGLYCEMIA PO PRN (14:00)
[2024-07-25] MEDS ORDERED: DEXTROSE 50% 50 ML SYRINGE IV PRN (14:00)
--- NOTE | 2024-07-25 14:14 | Pharmacy Report ---
Pharmacy Glycemic Short Note 2 - Date of Service July 25, 2024 - Glycemic Short BSG Results (Last 24 hours): 07/25/24 07/25/24 07/25/24 06:40 11:42 13:41 POC Glucose 162 H 263 H 280 H OUTPATIENT ANTIDIABETIC REGIMEN: * Mounjaro 15 mg SC every Wednesday * Lantus 60 units SC PM * Humalog sliding scale (patient does not use with every meal, truly prn) HbA1c: * 9.6% (05/31/24) ASSESSMENT: * 63 yo M admitted on 07/25/24 postoperatively following spinal surgery with Dr. Mckee. Pharmacy has been consulted to assist with inpatient glycemic management. Patient is a Type 2 diabetic as an outpatient. Please refer to outpatient regimen and most recent HbA1c above. * Received 4 mg of IV dexamethasone periop. Scheduled to received 6 mg of IV dexamethasone daily x 3 days postop. T2DM diet ordered, will follow to see if patient tolerates. Patient was admitted for a few days in May [address] Mckee so will use that admission data to guide antidiabetic regimen for this admission. * Preop BSG was 162 mg/dL. Did take 60 units of Lantus last evening. Periop BSG 263 mg/dL, given 3 units of Novolog per anesthesiologist. Postop BSG was 280 mg/dL. Will cover this with one time Novolog order. * Will start Novolog at CF 15 and CR 4 which patient tolerated well during previous admission. Adding overnight checks x 2 for first night. Targeting goal BSG range of 110-140 mg/dL with hopes to maintain postop BSGs < 180 mg/dL. Will order 60 units of basal PM which patient did well with last admission. Starting early today. PLAN FOR INPATIENT GLYCEMIC CONTROL: * Basal insulin * Lantus 60 units SC PM (first dose now) * Bolus insulin * NovoLog per scale ACHS or Q6hrs while NPO * Goal Range: Low 110 mg/dL - High 140 mg/dL * Correction Factor: 15 mg/dL/unit * Nutritional / Prandial insulin per carb ratio of 1 unit per 4 grams CHO consumed
[2024-07-25] MEDS ORDERED: ACETAMINOPHEN 1,000 MG/100 ML VIAL IV PRN (15:00)
[2024-07-25] MEDS: INSULIN ASPART PER UNIT CHARGE SC ONE (16:08)
--- NOTE | 2024-07-25 16:10 | Consultation ---
Date of Consultation July 25, 2024 Assessment & Plan (1) Multilevel lumbosacral spondylosis with radiculopathy: (2) Type 2 diabetes mellitus: (3) History of prostate cancer: (4) Hypertension: Plan Multilevel lumbosacral spondylosis with radiculopathy: POD#0 s/p L4-S1 decompression and fusion, removal of spinal cord generator and leads, replacement of spinal cord generator and leadsunder the care of Dr. Mckee. Per ortho for pain control, wound care, anticoagulation and activities. Monitor H&H, pre op 14.9 on 06/02; trend in AM continue incentive spirometry PT/OT when appropriate IDDM2 with diabetic neuropathy: chronic takes Lantus SQ 60 units QPM Takes Monjaro; hold Place on AC/HS SSI while here Takes Lyrica; continue Most recent A1C 05/31 9.6; he states Monjaro was out of stock, has been taking it up until a few days prior to sx. Recheck A1C HTN: Chronic Takes irbesartan; continue HLD: Chronic takes lipitor; continue OTHER PMH: H/O Prostate Cancer Depression: Chronic - takes Cymbalta; continue GERD: Chronic - takes Pantoprazole; continue Disposition: PCP: Dr. Willett Code Status: Full Code VTE Prophylaxis: Per admitting team I spent a total of 61 minutes coordinating, documenting, and providing care for this patient excluding time spent inthe performance of separately billed services or time spent by another provider/QHP. Supervising Physician Co-Signing Physician Notes Patient was seen and examined at bedside as medical consult status post L4-S1 decompression and fusion. Patient doing well hemodynamically. Patient reports pain fairly under control. Agree with assessment plan exam above. Labs in AM to monitor for acute blood loss anemia. Total time spent: 9 minutes. History of Present Illness Requesting Physician: Dr. Mckee Reason for Consultation: post op medical management Attending Physician: Km Mckee DO History of Present Illness Mr. Smith is a 63 year old male that presented to the [facility] for a planned surgical intervention under the care of Dr. Mckee for L4-S1 decompression and fusion, removal of spinal cord generator and leads, replacement of spinal cord generator and leads. Patient has medical history includes history of C5-C7 ACDF 05/31/2020, history of prostate CA in 2011 status post XRT, HTN, NIDDM 2, depression and GERD Doing send abrasion, UTI and goal and he does not still present foot and even sleep Instructed to sleep in the call over and announced they will address. Pre operative Hgb 13.9; patient has a MIGUELANGEL drain post operative with four surgical sites; thoracic, spinal cord stimulator removed and replaced. He is tolerating a diet well and is Postoperatively patient is recovering well in his hospital room. Patient denies any headache, dizziness, shortness breath, chest pain, nausea, vomiting, diarrhea, peripheral neuropathy. Reportedly has incisional pain. [facility]. We are available via [employer] Text 04/01 for any questions, or concerns. Allergies Allergy/AdvReac Type Severity Reaction Status Date / Time No Known Allergies Allergy Verified 07/25/24 06:29 Home Medications Medication Instructions Recorded Confirmed Type atorvastatin 20 mg tablet (Lipitor) 20 mg PO QPM 05/26/24 07/25/24 History duloxetine 20 mg capsule,delayed 20 mg PO BID 05/26/24 07/25/24 History release (Cymbalta) insulin glargine 100 unit/mL (3 60 unit subcut QPM 05/26/24 07/25/24 History mL) subcutaneous pen (Lantus Solostar U-100 Insulin) insulin lispro 100 unit/mL 1 sliding scale dose subcut UD PRN 05/26/24 07/25/24 History subcutaneous pen BS levels irbesartan 300 mg tablet (Avapro) 300 mg PO QAM 05/26/24 07/25/24 History pantoprazole 20 mg tablet,delayed 20 mg PO QAM 05/26/24 07/25/24 History release (Protonix) pregabalin 300 mg capsule 300 mg PO BID 05/26/24 07/25/24 History tirzepatide 15 mg/0.5 mL 15 mg subcut WK 05/26/24 07/25/24 History subcutaneous pen injector (Mounjaro) cholecalciferol (vitamin D3) 125 5,000 unit PO QAM 05/30/24 07/25/24 History mcg (5,000 unit) tablet cyanocobalamin (vitamin B-12) 1,000 mcg PO QAM 05/30/24 07/25/24 History 1,000 mcg tablet multivitamin 1 tab PO QAM 05/30/24 07/25/24 History tramadol 50 mg tablet 50 mg PO Q6H PRN pain, moderate #2 05/31/24 07/25/24 Rx tabs acetaminophen 500 mg capsule 500 mg PO QID PRN Pain 07/20/24 07/25/24 History Patient History Medical History History of kidney stones Passed on own Type 2 diabetes mellitus IDDM History of prostate cancer 2011 - s/p XRT only (no chemo/surgery) Hx of gastric ulcer Bleeding ulcers (~01/2023) Resolved, no current/recent issues Hypertension Surgical History History of esophagogastroduodenoscopy (EGD) (01/2023) with cauterization of bleeding ulcers History of cervical corpectomy (05/31/25) C6 Corpectomy, C5-7 ACDF S/P insertion of spinal cord stimulator (2022) Hx of fusion of cervical spine 2016 (+ hardware) Hx of colonoscopy Family History Other No family history of adverse response to anesthesia Social History Smoking Status: Never smoker Second Hand Exposure: No; Do You Dip or Chew Tobacco: No; Tobacco Cessation Education Requested by Patient: No Hx Alcohol Use: Yes Alcohol type: beer Hx Substance Use: No Preferred Language: Citizen Of [place] Communication Ability: Effective Nursing Home Assistant Administrator Required: No Beliefs That Will Affect Care: None Current Living Situation: Spouse Other Information That Helps Us Care for You: No Feels Safe at Home: Yes Safety Concerns: Feels Safe At This Time Assistive Devices: Cane and Walker Review of Systems Review of Systems: Neuro: (-) Falls, trauma, slurred speech HEENT: (-) RAYO, dizziness, dysphagia, visual or auditory changes CV: (-) CP, palpitations, swelling Resp: (-) SOB GI: (-) appetite changes, N/V/D, bowel changes : (-) urinary changes Skin: (-) rashes (+) thoracic incisional pain Psych: (-) anxiety, depression Physical Exam Physical Exam: Neuro: AAOx4, PERRLA, no aphagia, memory changes, CNII-XII grossly intact HEENT: head normocephalic, moist mucus membranes CV: S1/S2, (-) M/G/R, (-) edema, cap refill < 3 seconds MIGUELANGEL drain with jose cruz red bloody output Resp: Lungs CTA in all thompson. On RA GI: Abdomen S/NT/ND, Ax4 bowel sounds, (-) CVA tenderness Musculoskeletal: 5/5 B/L UE strength, 5/5 B/L LE strength. No gait disturbance Skin: (-) rashes , (-) erythema. Psych: euthymic mood Results & Data Vital Signs (Past 12 Hours) Vital Signs Temp Pulse Pulse Resp BP Pulse Ox O2 Del Method 07/25/24 14:57 36.4 C L 92 H 18 125/75 93 Room Air 07/25/24 14:36 36.8 C 94 H 17 138/71 95 Nasal Cannula 07/25/24 14:00 36.8 C 95 H 20 101/77 93 Nasal Cannula 07/25/24 13:30 87 18 125/77 95 Nasal Cannula 07/25/24 13:15 86 12 105/78 95 Nasal Cannula 07/25/24 13:00 88 20 118/73 95 Nasal Cannula 07/25/24 12:45 36.5 C 80 15 138/71 94 Nasal Cannula 07/25/24 12:35 77 13 132/70 94 Nasal Cannula 07/25/24 12:25 76 13 103/52 L 98 Nasal Cannula 07/25/24 12:15 75 13 144/73 H 97 Oxymask 07/25/24 12:05 72 13 135/68 96 Oxymask 07/25/24 11:55 74 15 131/74 98 Oxymask 07/25/24 11:45 73 14 118/65 94 Oxymask 07/25/24 11:37 36.1 C L 68 20 110/56 L 98 Oxymask 07/25/24 06:41 36.4 C L 69 18 148/86 H 98 Room Air O2 Flow Rate 07/25/24 14:57 07/25/24 14:36 2 07/25/24 14:00 2 07/25/24 13:30 2 07/25/24 13:15 2 07/25/24 13:00 2 07/25/24 12:45 2 07/25/24 12:35 2 07/25/24 12:25 2 07/25/24 12:15 2 07/25/24 12:05 4 07/25/24 11:55 6 07/25/24 11:45 6 07/25/24 11:37 8 07/25/24 06:41
[2024-07-25] MEDS: LANTUS PER UNIT CHARGE SC SCH (16:52)
[2024-07-25] MEDS: INSULIN ASPART PER UNIT CHARGE SC SCH ×2 (18:03→23:37)
[2024-07-25] MEDS: DOCUSATE SODIUM/SENNA 50/8.6MG TAB PO SCH (21:31)
[2024-07-25] MEDS: DULoxetine HCL 20 MG CAP PO SCH (21:31)
[2024-07-25] MEDS: PREGABALIN 150 MG CAP PO SCH (21:31)
[2024-07-25] MEDS: ATORVASTATIN 20 MG TAB PO SCH (21:31)
[2024-07-26] MEDS: POLYETHYLENE (MIRALAX) 17 GM PACK PO SCH (05:54)
[2024-07-26] MEDS: oxyCODONE HCL IR 5 MG TAB (IMMEDIATE RELEASE) PO PRN (07:54)
[2024-07-26 08:03] LABS: Basophils # (auto) 0.01 K/uL (0.00-0.20); Basophils % (auto) 0.1 %; Eosinophils # (auto) 0.06 K/uL (0.00-0.50); Eosinophils % (auto) 0.5 %; Hematocrit (blood only) 36.4 % (42.0-52.0); Hemoglobin 12.2 g/dl (14.0-18.0); Immature Granulocytes # (auto) 0.04 K/uL (0.01-0.20); Immature Granulocytes % (auto) 0.4 %; Lymphocytes # (auto) 2.13 K/uL (1.20-3.40); Lymphocytes % (auto) 18.9 %; Mean Corpuscular Hemoglobin 31.5 pg (25.0-34.0); Mean Corpuscular Hgb Conc 33.5 g/dL (32.0-36.0); Mean Corpuscular Volume 94.1 fL (80.0-100.0); Mean Platelet Volume 11.3 fL (9.4-12.4); Monocytes # (auto) 1.22 K/uL (0.11-0.59); Monocytes % (auto) 10.8 %; Neutrophils # (auto) 7.81 K/uL (1.40-6.50); Neutrophils % (auto) 69.3 %; Platelet Count 257 K/uL (130-400); RDW Coefficient of Variation 13.3 % (11.5-14.5); RDW Standard Deviation 45.9 fL (36.4-46.3); Red Blood Count 3.87 M/uL (4.70-6.10); White Blood Count 11.27 K/ul (4.8-10.8)
[2024-07-26 08:11] LABS: BUN Creatinine Ratio 24.8 (10-20); Calcium 8.8 mg/dl (8.6-10.3); Creatinine Clr Calc Pharmacy 75.8 ml/min; Potassium 4.4 mmol/L (3.5-5.1)
[2024-07-26] MEDS: CYANOCOBALAMIN (B-12) 500 MCG TABLET PO SCH (08:18)
[2024-07-26] MEDS: CHOLECALCIFEROL 125 MCG (5,000 UNITS) TAB PO SCH (08:18)
[2024-07-26] MEDS: LOSARTAN POTASSIUM 50 MG TAB PO SCH (08:20)
[2024-07-26] MEDS: PANTOprazole 40 MG TAB PO SCH (08:20)
[2024-07-26] MEDS: dexAMETHasone 6 MG in SYRINGE 0 ML IV SCH (09:10)
[2024-07-26 09:17] LABS: Estimated Average Glucose 186 mg/dl; Hemoglobin A1C 8.1 % (4.5-5.6)
--- NOTE | 2024-07-26 12:15 | Orthopedic Progress Note ---
Date of Service July 26, 2024 Assessment & Plan (1) Multilevel lumbosacral spondylosis with radiculopathy: Plan: At this time we will continue physical therapy monitor his MIGUELANGEL output anticipate discharge home in the next few days. Admission and Anticipated Discharge Date Admission Date: July 25, 2024 Subjective Patient's back pain is controlled. Leg symptoms markedly improved. Physical Exam Physical Exam: Patient is in the chair at the bedside. Is comfortable. Good strength testing. Results & Data Vital Signs (Past 12 Hours) Vital Signs Temp Pulse Resp BP Pulse Ox O2 Del Method 07/26/24 07:25 36.6 C 18 130/65 97 Room Air 07/26/24 03:19 36.8 C 65 16 127/70 95 Room Air
--- NOTE | 2024-07-26 14:02 | Hospitalist Progress Note ---
Date of Service July 26, 2024 Assessment & Plan (1) Multilevel lumbosacral spondylosis with radiculopathy: (2) Type 2 diabetes mellitus: (3) History of prostate cancer: (4) Hypertension: Plan Multilevel lumbosacral spondylosis with radiculopathy: S/p L4-S1 decompression and fusion, removal of spinal cord generator and leads, replacement of spinal cord generator and leads under the care of Dr. Mckee. POD 1 Pre op 14.9 on 06/02 Hb is 12.2 today. 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 Currently on hold Continue AC/HS SSI while here Takes Lyrica; continue Most recent A1C 05/31 9.6; he states Monjaro was out of stock, has been taking it up until a few days prior to sx. HbA1c is 8.1 HTN: Chronic Continue irbesartan HLD: Continue lipitor OTHER PMH: H/O Prostate Cancer Depression: Chronic - takes Cymbalta; continue GERD: Chronic - takes Pantoprazole; continue Disposition: PCP: Dr. Willett Code Status: Full Code VTE Prophylaxis: Defer to Primary Surgeon I spent a total of 45 minutes coordinating, documenting, and providing care for this patient excluding time spent inthe performance of separately billed services or time spent by another provider/QHP. Admission and Anticipated Discharge Date Admission Date: July 25, 2024 Subjective Patient seen and examined Reports surgical site pain is well controlled No new complaints Physical Exam Constitutional: + well hydrated; no acute distress Eyes: PERRL, conjunctivae normal, anicteric sclerae ENMT: external ear and nose normal, oropharynx normal Respiratory: normal respiratory effort, lungs clear to auscultation Cardiovascular: Rate/Rhythm: regular rate and regular rhythm Gastrointestinal (Abdomen): normal bowel sounds, soft, nontender, no hepatosplenomegaly Musculoskeletal: No pedal edema Clean dressing over lower back and upper back Drain in situ in lower back dressing Neurologic: PERRL, EOMI, accommodation nl, no face palsy, no dysarthria Psychiatric: A+Ox3, euthymic affect Results & Data Results & Data Vital Signs (Past 12 Hours) Vital Signs Temp Pulse Pulse Resp BP Pulse Ox O2 Del Method 07/26/24 12:38 36.6 C 84 20 128/59 L 98 Room Air 07/26/24 07:25 36.6 C 18 130/65 97 Room Air 07/26/24 03:19 36.8 C 65 16 127/70 95 Room Air Laboratory Results Abnormal lab results 07/25/24 07/25/24 07/25/24 Range/Units 16:30 20:32 20:35 WBC (4.8-10.8) K/ul RBC (4.70-6.10) M/uL Hgb (14.0-18.0) g/dl Hct (42.0-52.0) % Neut # (Auto) (1.40-6.50) K/uL [place] # (Auto) (0.11-0.59) K/uL Sodium (136-145) mmol/L BUN (6-23) mg/dl BUN/Creatinine Ratio (10-20) Glucose (70-99(Fasting)) mg/dl POC Glucose 378 H* 339 H* 332 H* (70-99) mg/dl Hemoglobin A1c (4.5-5.6) % 07/25/24 07/25/24 07/26/24 Range/Units 20:38 23:33 04:03 WBC (4.8-10.8) K/ul RBC (4.70-6.10) M/uL Hgb (14.0-18.0) g/dl Hct (42.0-52.0) % Neut # (Auto) (1.40-6.50) K/uL [place] # (Auto) (0.11-0.59) K/uL Sodium (136-145) mmol/L BUN (6-23) mg/dl BUN/Creatinine Ratio (10-20) Glucose (70-99(Fasting)) mg/dl POC Glucose 340 H* 278 H 184 H (70-99) mg/dl Hemoglobin A1c (4.5-5.6) % 07/26/24 07/26/24 07/26/24 Range/Units 07:27 07:53 11:46 WBC 11.27 H (4.8-10.8) K/ul RBC 3.87 L (4.70-6.10) M/uL Hgb 12.2 L (14.0-18.0) g/dl Hct 36.4 L (42.0-52.0) % Neut # (Auto) 7.81 H (1.40-6.50) K/uL [place] # (Auto) 1.22 H (0.11-0.59) K/uL Sodium 134 L (136-145) mmol/L BUN 29 H (6-23) mg/dl BUN/Creatinine Ratio 24.8 H (10-20) Glucose 184 H (70-99(Fasting)) mg/dl POC Glucose 182 H 207 H (70-99) mg/dl Hemoglobin A1c 8.1 H (4.5-5.6) %
[2024-07-26] MEDS: INSULIN ASPART PER UNIT CHARGE SC SCH (23:44)
[2024-07-27 08:04] LABS: Hematocrit (blood only) 31.8 % (42.0-52.0); Hemoglobin 10.6 g/dl (14.0-18.0); Mean Corpuscular Hemoglobin 31.4 pg (25.0-34.0); Mean Corpuscular Hgb Conc 33.3 g/dL (32.0-36.0); Mean Corpuscular Volume 94.1 fL (80.0-100.0); Mean Platelet Volume 11.5 fL (9.4-12.4); Platelet Count 198 K/uL (130-400); RDW Coefficient of Variation 13.2 % (11.5-14.5); RDW Standard Deviation 45.8 fL (36.4-46.3); Red Blood Count 3.38 M/uL (4.70-6.10); White Blood Count 12.75 K/ul (4.8-10.8)
--- NOTE | 2024-07-27 12:15 | Orthopedic Progress Note ---
Date of Service July 27, 2024 Assessment & Plan (1) Multilevel lumbosacral spondylosis with radiculopathy: Plan: At this time we will continue physical therapy monitor his MIGUELANGEL operatively discharge home in the next few days. Admission and Anticipated Discharge Date Admission Date: July 25, 2024 Subjective Patient's back pain is controlled leg pain improved. Physical Exam Physical Exam: Patient is in the chair at the bedside. Is comfortable at his strength testing. Results & Data Vital Signs (Past 12 Hours) Vital Signs Temp Pulse Resp BP Pulse Ox O2 Del Method 07/27/24 07:55 Room Air 07/27/24 07:51 36.4 C L 72 16 123/67 96 Room Air
--- NOTE | 2024-07-27 12:25 | Pharmacy Report ---
Pharmacy Glycemic Short Note 2 - Date of Service July 27, 2024 - Glycemic Short BSG Results (Last 24 hours): 07/26/24 07/26/24 07/26/24 16:20 20:52 23:35 POC Glucose 230 H 284 H 200 H 07/27/24 07/27/24 07:15 11:17 POC Glucose 112 H 253 H OUTPATIENT ANTIDIABETIC REGIMEN: * Mounjaro 15 mg SC every Wednesday * Lantus 60 units SC PM * Humalog sliding scale (patient does not use with every meal, truly prn) HbA1c: * 9.6% (05/31/24) ASSESSMENT: 07/27 * Patient received total of 222 units of insulin yesterday, of which 60 units were basal insulin * Fasting BSG 112 mg/dL - will continue with basal dose for HS time. BSGs trending up throughout the day with IV dexamethasone, novolog parameters already tightened further yesterday. Plan to add on low dose NPH 15 units daily to help with dexamethasone effects during the day 07/25 * 63 yo M admitted on 07/25/24 postoperatively following spinal surgery with Dr. Mckee. Pharmacy has been consulted to assist with inpatient glycemic management. Patient is a Type 2 diabetic as an outpatient. Please refer to outpatient regimen and most recent HbA1c above. * Received 4 mg of IV dexamethasone periop. Scheduled to received 6 mg of IV dexamethasone daily x 3 days postop. T2DM diet ordered, will follow to see if patient tolerates. Patient was admitted for a few days in May [address] Mckee so will use that admission data to guide antidiabetic regimen for this admission. * Preop BSG was 162 mg/dL. Did take 60 units of Lantus last evening. Periop BSG 263 mg/dL, given 3 units of Novolog per anesthesiologist. Postop BSG was 280 mg/dL. Will cover this with one time Novolog order. * Will start Novolog at CF 15 and CR 4 which patient tolerated well during previous admission. Adding overnight checks x 2 for first night. Targeting goal BSG range of 110-140 mg/dL with hopes to maintain postop BSGs < 180 mg/dL. Will order 60 units of basal PM which patient did well with last admission. Starting early today. PLAN FOR INPATIENT GLYCEMIC CONTROL: * Basal insulin * Lantus 60 units SC PM * NPH 15 units once daily - given with IV dexamethasone * Bolus insulin * NovoLog per scale ACHS or Q6hrs while NPO * Goal Range: Low 110 mg/dL - High 140 mg/dL * Correction Factor: 12 mg/dL/unit * Nutritional / Prandial insulin per carb ratio of 1 unit per 3 grams CHO consumed
[2024-07-27] MEDS: NovoLIN-N (NPH) PER UNIT CHARGE SQ ONE (12:36)
--- NOTE | 2024-07-27 13:26 | Hospitalist Progress Note ---
Date of Service July 27, 2024 Assessment & Plan (1) Multilevel lumbosacral spondylosis with radiculopathy: (2) Type 2 diabetes mellitus: (3) History of prostate cancer: (4) Hypertension: Plan Multilevel lumbosacral spondylosis with radiculopathy: S/p L4-S1 decompression and fusion, removal of spinal cord generator and leads, replacement of spinal cord generator and leads under the care of Dr. Mckee. POD 2 Pre op 14.9 on 06/02 Hb is 10.6 today. Possible blood loss anemia from surgery Monitor Continue incentive spirometry Continue PT/OT IDDM2 with diabetic neuropathy: Chronic takes Lantus SQ 60 units QPM Takes Monjaro [employer]INICAL RESEARCH SPEC. Currently on hold Continue AC/HS SSI while here Takes Lyrica; continue Most recent A1C 05/31 9.6; he states Monjaro was out of stock, has been taking it up until a few days prior to sx. HbA1c is 8.1 HTN: Chronic Continue irbesartan HLD: Continue lipitor OTHER PMH: H/O Prostate Cancer Depression: Chronic - takes Cymbalta; continue GERD: Chronic - takes Pantoprazole; continue Disposition: PCP: Dr. Willett Code Status: Full Code VTE Prophylaxis: Defer to Primary Surgeon I spent a total of 45 minutes coordinating, documenting, and providing care for this patient excluding time spent inthe performance of separately billed services or time spent by another provider/QHP. Admission and Anticipated Discharge Date Admission Date: July 25, 2024 Subjective Patient seen and examined Reports surgical site pain is well controlled Had urinary incontinence after garduno removal but improved. Patient reports that is not new for him Denied dysuria, freq, hematuria No new complaints Physical Exam Constitutional: + well hydrated; no acute distress Eyes: PERRL, conjunctivae normal, anicteric sclerae ENMT: external ear and nose normal, oropharynx normal Respiratory: normal respiratory effort, lungs clear to auscultation Cardiovascular: Rate/Rhythm: regular rate and regular rhythm Gastrointestinal (Abdomen): normal bowel sounds, soft, nontender, no hepatosplenomegaly Musculoskeletal: Clean dressing over surgical site with drain in situ Neurologic: PERRL, EOMI, accommodation nl, no face palsy, no dysarthria Psychiatric: A+Ox3, euthymic affect Results & Data Results & Data Vital Signs (Past 12 Hours) Vital Signs Temp Pulse Resp BP Pulse Ox O2 Del Method 07/27/24 07:55 Room Air 07/27/24 07:51 36.4 C L 72 16 123/67 96 Room Air Laboratory Results Abnormal lab results 07/25/24 07/26/24 07/26/24 Range/Units 06:29 16:20 20:52 WBC (4.8-10.8) K/ul RBC (4.70-6.10) M/uL Hgb (14.0-18.0) g/dl Hct (42.0-52.0) % POC Glucose 230 H 284 H (70-99) mg/dl Crossmatch See Detail 07/26/24 07/27/24 07/27/24 Range/Units 23:35 07:09 07:15 WBC 12.75 H (4.8-10.8) K/ul RBC 3.38 L (4.70-6.10) M/uL Hgb 10.6 L (14.0-18.0) g/dl Hct 31.8 L (42.0-52.0) % POC Glucose 200 H 112 H (70-99) mg/dl Crossmatch 07/27/24 Range/Units 11:17 WBC (4.8-10.8) K/ul RBC (4.70-6.10) M/uL Hgb (14.0-18.0) g/dl Hct (42.0-52.0) % POC Glucose 253 H (70-99) mg/dl Crossmatch
[2024-07-27] MEDS: ACETAMINOPHEN 500 MG TAB PO PRN (21:06)
[2024-07-28 07:51] VITALS: RESP 18; TEMP 97.3; O2SAT 97
[2024-07-28] MEDS: NovoLIN-N (NPH) PER UNIT CHARGE SQ ONE (08:48)
[2024-07-28 09:12] LABS: Hematocrit (blood only) 34.6 % (42.0-52.0); Hemoglobin 11.3 g/dl (14.0-18.0); Mean Corpuscular Hemoglobin 30.9 pg (25.0-34.0); Mean Corpuscular Hgb Conc 32.7 g/dL (32.0-36.0); Mean Corpuscular Volume 94.5 fL (80.0-100.0); Mean Platelet Volume 11.6 fL (9.4-12.4); Platelet Count 247 K/uL (130-400); RDW Coefficient of Variation 13.2 % (11.5-14.5); RDW Standard Deviation 45.8 fL (36.4-46.3); Red Blood Count 3.66 M/uL (4.70-6.10); White Blood Count 12.52 K/ul (4.8-10.8)
--- NOTE | 2024-07-28 10:04 | Discharge Summary ---
Date of Service July 28, 2024 Admission HPI Per Admitting Provider This is a 63-year-old male who presents for chronic persistent back and leg pain after failing course of nonoperative care is here for surgical intervention. Principal Diagnosis Lumbar spondylosis with radiculopathy and failed spinal cord stimulator Discharge Data Allergies Allergy/AdvReac Type Severity Reaction Status Date / Time No Known Allergies Allergy Verified 07/25/24 06:29 Consultations 07/25/24 13:42 Consult Hospitalist Routine Procedures Performed Operation Date: 07/25/24 07:45 Actual Procedures p L4-S1 Decompression and Fusion, Spinal Cord Monitoring(Not Applicable) - Km Mckee DO s with Spinal Cord Leads and Generator Removal and Replacement of Spinal Cord Generator and Leads(Not Applicable) - Km Mckee DO Hospital Course (1) Multilevel lumbosacral spondylosis with radiculopathy: Patient underwent multilevel decompression fusion Spinal cord stimulator. Trial as well as taken orthopedic for postoperative. Postop he progressed well. Marked improvement of his pain. Excellent strength testing. MIGUELANGEL drain decreasing appropriately. Subsequently discharged home. Discharge orders instructions from the chart for further review. Total Time Total Time Spent Total Time Spent (In Minutes): 20 minutes Discharge Plan Discharge Items Patient Disposition: Home - Self-Care Reason For Visit: Myelopathy, Lower Extremity Weakness, Lumbar Steno Discharge Diagnosis: Lumbar spondylosis with spondylolisthesis and radiculopathy Activity: As commented below Non-emergency contact: Primary Care Provider Call non-emergency contact if: you have any medication questions Follow-up/Referrals: Estelle Okeefe DO [Primary Care Provider] - Diet: Regular Addtl Attending Provider Instructions: ACTIVITY RECOMMENDATIONS: SELF CARE INSTRUCTIONS AFTER THORACIC/LUMBAR FUSIONS 1. You may walk to your tolerance. It is good exercise for your legs and back. Expect some back and intermittent leg aches and pains. 2. You may perform "counter-top" level activities (make a sandwich, don with a project, etc.). 3. No bending or lifting of more than 10 pounds or back twisting of any nature (roll like a log when turning in bed). 4. You may ride in a car for 20-30 minutes at a time. No driving until after your first visit with your doctor. 5. Frequent changes of position and restricting sitting to 30 minutes at a time will help limit the amount of back spasms and stiffness you may experience. 6. You may discontinue the use of ambulatory aids (cane, crutches, etc.) once your strength and confidence allow. 7. You may air brakes inspector the shower and let water strike your incision when you arrive home at least once daily. Do not take a tub bath, sit in a hot tub or go into a swimming pool until after your first recheck in the office. 8. You may resume previous diet. SPECIAL CARE INSTRUCTIONS: VERY IMPORTANT TO READ AND REVIEW A. Your surgical incision has been closed with a cosmetic suture under the skin that will dissolve in about 6 weeks. In 14 days, you can use a pair of clean scissors and cut the suture that is left outside of the skin at the ends of your incision. 1. The small skin tapes can be removed 7 days after surgery if they have not fallen off by that point. 2. You may keep the wound open to air as much as possible to promote healing after post-op day number 5 unless told otherwise by your doctor. 3. If you think the wound looks like it is becoming infected (redness or worsening drainage) and/or you are experiencing fever, chill or worsening back pain and muscle spasms, contact the office so that we may evaluate you as soon as possible. B. Complications are uncommon, but please contact us if you have any signs or symptoms of: 1. wound infection (fever higher than 102.5 degrees F, redness, separation of wound, drainage, or increasing pain from the incision) 2. blood clots in legs (pain, swelling, redness and warmth in legs) 3. urinary tract infection (fever higher than 102.5 degrees F, burning upon urination or increased frequency of urination) 4. nerve problems (inability to walk on your toes or heels, numbness, loss of bowel or bladder control) 5. any other symptoms that concern you C. Please call the office at if you have any concerns or questions about your operation or recovery. D. No smoking! Smoking drastically decreases the chance of a solid fusion. E. Do not take any anti-inflammatory medications (Indocin, Advil, Motrin, Aspirin, Naprosyn, etc.) as these may inhibit the chance of a solid fusion. Tylenol is okay to take for pain. MANAGING PAIN AFTER SPINAL SURGERY 1. Narcotic medication is intended for short-term use and will be provided for surgical pain. Surgical pain usually lasts for a period of 4-6 weeks. Narcotic medication includes Percocet, Vicodin, Darvocet, Tylenol #3 or Lortab. 2. Longer-term pain is more appropriately treated with non-narcotic medication such as Tylenol ES. 3. Muscle spasm is not appropriately treated with narcotics. Muscle relaxers such as Soma, Flexeril or Skelaxin can be used along with Tylenol ES. 4. Remember that we all live with some "aches and pains". This is not unusual or uncommon after an injury or as we get older. a. Back pain is expected and may include muscle spasms for 4 to 6 weeks after surgery. The pain should gradually improve. If the pain worsens for no apparent reason, please contact the office. b. Intermittent leg pain may also be experienced and should not be concerned about unless it worsens for no apparent reason. If so, please contact the office. 5. We will provide appropriate medication within the normal guidelines of their prescribed use. We will also be very cautious and aware of potential abuse and extended duration of patients' medication needs. a. Pain medications are for your comfort and to assist with sleep and rest so that the tissue can heal. They are not provided in order to return to normal activity and should not be used through the day. To do so or worsening pain at night can result from ongoing tissue damage and development of tolerance to the prescribed medicine. 6. Please allow 2-3 days to process refills. Prescriptions will not be mailed but must be picked up at the office. FOLLOW UP VISIT: Keep your scheduled follow-up appointment. Any questions, please call the office at . Pending Studies at Discharge: No Stand-Alone Forms: My [employer], Smoking Cessation Medications and DC Order Prescriptions: New tramadol 50 mg tablet 50 mg PO Q6H PRN (Reason: pain, moderate) Qty: 30 0RF oxycodone 5 mg tablet 5 mg PO Q6H PRN (Reason: pain) Qty: 30 0RF Continued atorvastatin [Lipitor] 20 mg Tablet 20 mg PO QPM pantoprazole [Protonix] 20 mg Tablet,Delayed Release (Dr/Ec) 20 mg PO QAM irbesartan [Avapro] 300 mg Tablet 300 mg PO QAM insulin lispro 100 unit/mL Insulin Pen 1 sliding scale dose SUBCUT UD PRN (Reason: BS levels) Rx Instructions: Sliding scale. Pt states he only uses this strictly as needed and not exactly with each meal. duloxetine [Cymbalta] 20 mg Capsule,Delayed Release(Dr/Ec) 20 mg PO BID pregabalin 300 mg Capsule 300 mg PO BID insulin glargine [Lantus Solostar U-100 Insulin] 100 unit/mL (3 mL) Insulin Pen 60 unit SUBCUT QPM Mounjaro 15 mg/0.5 mL Pen Injector 15 mg SUBCUT WK Rx Instructions: Wednesday acetaminophen [Tylenol Extra Strength] 500 mg Capsule 500 mg PO QID PRN (Reason: Pain) multivitamin Tablet 1 tab PO QAM cyanocobalamin (vitamin B-12) 1,000 mcg tablet 1,000 mcg PO QAM cholecalciferol (vitamin D3) 125 mcg (5,000 unit) tablet 5,000 unit PO QAM tramadol 50 mg tablet 50 mg PO Q6H PRN (Reason: pain, moderate) Qty: 2 0RF Discharge Orders: Discharge Order (Routine); Ordered 07/28/24 Ordered By: Km Cannon/Other Patient Handouts: Managing Type 2 Diabetes Admission Data Admit Date/Time: 07/25/24 11:22 Attending Provider: Km Mckee Admit Provider: Km Mckee Primary Care Provider: Estelle Okeefe Other Providers: Rachel Whyte
[2024-07-28 10:39] VITALS: BP 111/65; PULSE 85
--- NOTE | 2024-07-28 12:06 | Hospitalist Progress Note ---
Date of Service July 28, 2024 Assessment & Plan (1) Multilevel lumbosacral spondylosis with radiculopathy: (2) Type 2 diabetes mellitus: (3) History of prostate cancer: (4) Hypertension: Plan Multilevel lumbosacral spondylosis with radiculopathy: S/p L4-S1 decompression and fusion, removal of spinal cord generator and leads, replacement of spinal cord generator and leads under the care of Dr. Mckee. POD 3 Pre op 14.9 on 06/02 Hb is now stable, 11.3 today. Possible blood loss anemia from surgery IDDM2 with diabetic neuropathy: Continue home diabetic regimen HbA1c is 8.1 HTN: Chronic Continue irbesartan Admission and Anticipated Discharge Date Admission Date: July 25, 2024 Subjective Patient seen and examined this AM No new complaints Physical Exam Constitutional: + well hydrated; no acute distress Eyes: PERRL, conjunctivae normal, anicteric sclerae ENMT: external ear and nose normal, oropharynx normal Respiratory: normal respiratory effort, lungs clear to auscultation Cardiovascular: Rate/Rhythm: regular rate and regular rhythm Gastrointestinal (Abdomen): normal bowel sounds, soft, nontender, no hepatosplenomegaly Musculoskeletal: Clean dressing over surgical site Neurologic: PERRL, EOMI, accommodation nl, no face palsy, no dysarthria Psychiatric: A+Ox3, euthymic affect Results & Data Results & Data Vital Signs (Past 12 Hours) Vital Signs Temp Pulse Pulse Resp BP BP Pulse Ox 07/28/24 10:38 36.3 C L 65 85 18 111/65 135/77 97 07/28/24 07:50 36.3 C L 65 18 135/77 97 O2 Del Method 07/28/24 10:38 07/28/24 07:50 Room Air Laboratory Results Abnormal lab results 07/27/24 07/27/24 07/28/24 Range/Units 16:49 20:26 00:00 WBC (4.8-10.8) K/ul RBC (4.70-6.10) M/uL Hgb (14.0-18.0) g/dl Hct (42.0-52.0) % POC Glucose 140 H 159 H 174 H (70-99) mg/dl 07/28/24 07/28/24 Range/Units 07:47 08:02 WBC 12.52 H (4.8-10.8) K/ul RBC 3.66 L (4.70-6.10) M/uL Hgb 11.3 L (14.0-18.0) g/dl Hct 34.6 L (42.0-52.0) % POC Glucose 112 H (70-99) mg/dl
== END 2024-07-28 12:01 | disposition home or self-care (01) | DRG 427 ==
LOC: ASU 06:19 → PACUINP 11:22 → 3N 15:05